=== PATIENT | male | born 1960 | race Caucasian/White ===

== ENCOUNTER 2017-10-28 20:09 | Inpatient (IN) | payer MEDICAID ==
[~2017-10-28] VITALS: Ht 167.6 cm; Wt 53.5 kg
[~2017-10-28 20:09] MED LIST: ASPIRIN325 PO; ATIVAN1 MG PO; CELEXA20 MG PO; CREON 10 CAPSUL1 CA1 PO; DILAUDID 2 MG TA2 MG PO; FLOMAX PO; NOHOMEMEDICATIONS; OXYCODONE HCL 55 MG PO; OXYCODONE HCL5 M1 PO; PEPCID20 MG PO; PRENATABS FA T1 EACH PO; PROTONIX40 M1 PO; TRINATE TABLET1 TAB PO; VITAMIN B-1100 M1 PO; XARELTO15 MG PO; XARELTO20 MG PO
[2017-10-28 20:17] VITALS: BP 111/75
[2017-10-28] MEDS ORDERED: FLUOXETINE PO (20:29)
[2017-10-28] MEDS ORDERED: TRAZODONE PO (20:29)
[2017-10-28] MEDS ORDERED: GABAPENTIN PO (20:29)
[2017-10-28] MEDS ORDERED: MELOXICAM PO (20:30)
[2017-10-28] MEDS ORDERED: ASPIRIN325 PO (20:30)
[2017-10-28] MEDS ORDERED: NALTREXONE PO (20:30)
[2017-10-28 20:40] LABS: ABSOLUTE BASOPHILS 0.2 thou/uL (0.0-0.2); ABSOLUTE EOSINOPHILS 0.3 thou/uL (0.0-0.7); ABSOLUTE LYMPHOCYTES 2.9 thou/uL (0.8-5.3); ABSOLUTE MONOCYTES 1.4 thou/uL (0.0-1.2); ABSOLUTE NEUTROPHILS 10.5 thou/uL (1.6-8.1); BASOPHILS 1.1 %; EOSINOPHILS 2.2 %; HEMATOCRIT 28.7 % (42.0-52.0); HEMOGLOBIN 9.3 gm/dL (14.0-18.0); LYMPHOCYTES 18.7 %; MCHC 32.5 g/dL (28.0-37.0); MCV 95.5 fL (80.0-100.0); MONOCYTES 9.4 %; MPV 7.7 fl. (7.2-11.1); NUCLEATED RBCS 0 /100WBC; PLATELET COUNT* 533 thou/uL (150-400); POLYS 68.6 %; RBC 3.01 mil/uL (4.50-6.00); RDW-CV 16.9 % (10.5-14.5); WBC 15.3 thou/uL (4.0-11.0)
[2017-10-28 20:49] LABS: APTT 35.5 Seconds (25.0-31.3); PROTIME 10.2 Seconds (9.20-11.50)
[2017-10-28 21:49] LABS: ANION GAP 14 mmol/L (7-16); BUN 52 mg/dL (7-18); CALCIUM 8.9 mg/dL (8.5-10.1); CHLORIDE 102 mmol/L (98-107); CO2 16 mmol/L (21-32); CREATININE 2.7 mg/dL (0.6-1.3); GLUCOSE 107 mg/dL (70-99); POTASSIUM 4.8 mmol/L (3.5-5.1); SODIUM 132 mmol/L (136-145)
[2017-10-28 22:08] LABS: ALBUMIN 2.6 g/dL (3.4-5.0); ALKALINE PHOSPHATASE 103 U/L (46-116); CK-MB MASS < 0.5 ng/mL (<0.5-3.6); NT-PRO BRAIN NAT PEPTIDE 233 pg/mL (<300); SGOT 11 U/L (15-37); SGPT 7 U/L (30-65); TOTAL BILIRUBIN 0.2 mg/dL (<0.1-1.0); TOTAL PROTEIN 8.2 g/dL (6.4-8.2); TROPONIN-I LEVEL <0.06 ng/mL (<0.06)
[2017-10-28 23:03] VITALS: BP 126/77
[2017-10-28 23:54] LABS: URINE BILIRUBIN NEGATIVE (Negative); URINE BLOOD 3+ (Negative); URINE CLARITY TURBID; URINE COLOR YELLOW; URINE GLUCOSE-RANDOM NEGATIVE (Negative); URINE KETONES NEGATIVE (Negative); URINE PROTEIN 2+ (Negative); URINE UROBILINOGEN 0.2 E.U./dl (0.2-1.0)
[2017-10-29] VITALS (7 sets, daily range): BP systolic 109–132; BP diastolic 70–87
[2017-10-29] LABS: URINE LEUKOCYTES-REFLEX 3+ (Negative); URINE NITRITE-REFLEX POSITIVE (Negative)
[2017-10-29 00:01] LABS: AMP/METHAMP Negative (Negative); BARBITURATES Negative (Negative); BENZODIAZEPINES Negative (Negative); COCAINE Negative (Negative); METHADONE Negative (Negative); OPIATES Negative (Negative); PCP Negative (Negative); THC Negative (Negative)
[2017-10-29 01:19] LABS: CASTS None Seen /LPF (None Seen); SQUAMOUS 0-3 Few /LPF (0-3)
[2017-10-29 01:20] LABS: URINE RBC >20 Many /HPF (0-2); URINE WBC-REFLEX >25 Many /HPF (0-5)
[2017-10-29 01:21] LABS: BACTERIA-REFLEX 1-9 Few /HPF (None Seen); CRYSTALS None Seen /LPF (None Seen)
--- NOTE | 2017-10-29 14:23 | EKG ---
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: SHAKIR Low : 1960 Requested By: Karthik Swartz Order Number: [id number] MD: Camacho Beltran Measurements Intervals Icard Rate: 92 P: 80 SD: 149 QRS: 49 QRSD: 115 T: 44 QT: 359 QTc: 445 Interpretive Statements Sinus rhythm Probable left atrial enlargement Incomplete left bundle branch block Left ventricular hypertrophy Anterior Q waves, possibly due to LVH Baseline wander in lead(s) I Compared to ECG 04/17/2016 15:00:18 Left bundle-branch block now present Left ventricular hypertrophy now present Q waves now present T-wave abnormality no longer present Electronically Signed On 10-29-2017 14:23:10 CDT by Camacho Beltran [email or web address] <ELECTRONICALLY SIGNED> By: Camacho Beltran MD, [facility] 10/29/17 1423 39 39 Camacho Beltran MD, [facility] /EPI
[2017-10-29 16:28] LABS: ABSOLUTE BASOPHILS 0.1 thou/uL (0.0-0.2); ABSOLUTE EOSINOPHILS 0.4 thou/uL (0.0-0.7); ABSOLUTE LYMPHOCYTES 2.3 thou/uL (0.8-5.3); ABSOLUTE MONOCYTES 1.8 thou/uL (0.0-1.2); ABSOLUTE NEUTROPHILS 8.7 thou/uL (1.6-8.1); EOSINOPHILS 3.3 %; HEMATOCRIT 24.7 % (42.0-52.0); HEMOGLOBIN 7.6 gm/dL (14.0-18.0); LYMPHOCYTES 17.3 %; MCHC 30.9 g/dL (28.0-37.0); MCV 100.2 fL (80.0-100.0); MONOCYTES 13.1 %; MPV 8.4 fl. (7.2-11.1); NUCLEATED RBCS 0 /100WBC; PLATELET COUNT* 440 thou/uL (150-400); POLYS 65.3 %; RBC 2.46 mil/uL (4.50-6.00); RDW-CV 18.4 % (10.5-14.5); WBC 13.4 thou/uL (4.0-11.0)
[2017-10-29 16:31] LABS: CALCIUM 7.9 mg/dL (8.5-10.1); CREATININE 2.3 mg/dL (0.6-1.3); POTASSIUM 4.9 mmol/L (3.5-5.1)
[2017-10-30 04:00] VITALS: BP 128/70
[2017-10-30 08:00] VITALS: BP 134/80
[2017-10-30 11:41] VITALS: BP 133/84
[2017-10-30 12:34] LABS: CALCIUM 7.9 mg/dL (8.5-10.1); POTASSIUM 3.9 mmol/L (3.5-5.1)
[2017-10-30 12:35] LABS: CREATININE 1.3 mg/dL (0.6-1.3)
[2017-10-30 13:07] LABS: % SATURATION 13 % (20-39); IRON 18 ug/dL (50-175)
[2017-10-30 13:49] LABS: ABSOLUTE BASOPHILS 0.1 thou/uL (0.0-0.2); ABSOLUTE EOSINOPHILS 0.1 thou/uL (0.0-0.7); ABSOLUTE LYMPHOCYTES 1.4 thou/uL (0.8-5.3); ABSOLUTE MONOCYTES 0.9 thou/uL (0.0-1.2); ABSOLUTE NEUTROPHILS 8.9 thou/uL (1.6-8.1); BASOPHILS 0.5 %; EOSINOPHILS 1.1 %; HEMATOCRIT 24.6 % (42.0-52.0); HEMOGLOBIN 7.9 gm/dL (14.0-18.0); LYMPHOCYTES 12.4 %; MCH 30.7 pg (26.0-34.0); MCHC 32.2 g/dL (28.0-37.0); MCV 95.5 fL (80.0-100.0); MONOCYTES 7.7 %; NUCLEATED RBCS 0 /100WBC; PLATELET COUNT* 486 thou/uL (150-400); POLYS 78.3 %; RBC 2.57 mil/uL (4.50-6.00); RDW-CV 17.2 % (10.5-14.5); WBC 11.4 thou/uL (4.0-11.0)
[2017-10-30 15:38] VITALS: BP 142/82
[2017-10-30 20:10] VITALS: BP 139/94
[2017-10-30 23:25] VITALS: BP 141/92
[2017-10-31 03:40] VITALS: BP 134/93
[2017-10-31 07:51] VITALS: BP 136/85
[2017-10-31] MEDS ORDERED: PROTONIX40 M1 PO (12:32)
[2017-10-31] MEDS ORDERED: IRON325 PO (12:35)
[2017-10-31] MEDS ORDERED: CEFDINIR300 MG PO (12:37)
[2017-10-31 12:38] VITALS: BP 136/85
== END 2017-10-31 14:36 | disposition home or self-care (01) | DRG 682 ==
LOC: M.ERS 20:09 → M.2W 22:22 → M.TBA-ER 22:22 → M.2W 23:10
PROVIDERS: Emergency Medicine Emergency Medical Services; Internal Medicine; ADMIT Internal Medicine
DX: N17.9 Acute kidney failure, unspecified (principal); G93.41 Metabolic encephalopathy; E43 Unspecified severe protein-calorie malnutrition; R65.11 Systemic inflammatory response syndrome (SIRS) of non-infectious origin with acute organ dysfunction; Z68.1 Body mass index [BMI] 19.9 or less, adult; N39.0 Urinary tract infection, site not specified; E87.1 Hypo-osmolality and hyponatremia; E51.2 Wernicke's encephalopathy; F17.210 Nicotine dependence, cigarettes, uncomplicated; F10.10 Alcohol abuse, uncomplicated; F19.10 Other psychoactive substance abuse, uncomplicated; F03.90 Unspecified dementia, unspecified severity, without behavioral disturbance, psychotic disturbance, mood disturbance, and anxiety; E86.0 Dehydration; Z79.82 Long term (current) use of aspirin; Z79.899 Other long term (current) drug therapy

== ENCOUNTER 2018-03-10 16:14 | Inpatient (IN) | payer MEDICAID ==
[~2018-03-10] VITALS: Ht 170.2 cm; Wt 55.2 kg
[2018-03-10 16:14] VITALS: BP 133/81
[~2018-03-10 16:14] MED LIST changes: +CEFDINIR300 MG PO; +FLUOXETINE PO; +GABAPENTIN PO; +IRON325 PO; +MELOXICAM PO; +NALTREXONE PO; +TRAZODONE PO
--- NOTE | 2018-03-10 16:29 | NUR ---
PT CHANGED INTO GOWN, HEAD TO TOE, NO BRUISING NOTED ANYWHERE ON BODY, NO DEFORMITIES, NO ABRASIONS OR BLEEDING. PT IS AWAKE AND CAN TAKE BUT CAN NOT ANSWER QUESTIONS ASKED.
[2018-03-10] MEDS ORDERED: BENADRYL25 MG PO (16:40)
[2018-03-10] MEDS ORDERED: OMEPRAZOLE40 MG PO (16:40)
[2018-03-10] MEDS ORDERED: PHENERGAN 25 MG25 M1 PO (16:47)
[2018-03-10 17:40] LABS: BE -2.5 mmol/L (-2 to +3); HCO3 19.4 mmol/L (22.0-26.0); PCO2 25.8 mmHg (35.0-45.0); PO2 89.8 mmHg (75.0-100.0); pH 7.493 (7.340-7.450)
[2018-03-10 17:42] LABS: ABSOLUTE BASOPHILS 0.1 thou/uL (0.0-0.2); ABSOLUTE LYMPHOCYTES 1.5 thou/uL (0.8-5.3); BASOPHILS 1.2 %; EOSINOPHILS 0.1 %; HEMATOCRIT 32.5 % (42.0-52.0); HEMOGLOBIN 10.8 gm/dL (14.0-18.0); LYMPHOCYTES 17.2 %; MCH 30.6 pg (26.0-34.0); MCHC 33.2 g/dL (28.0-37.0); MCV 92.1 fL (80.0-100.0); MONOCYTES 11.3 %; MPV 8.4 fl. (7.2-11.1); NUCLEATED RBCS 0 /100WBC; PLATELET COUNT* 471 thou/uL (150-400); POLYS 70.2 %; RBC 3.53 mil/uL (4.50-6.00); RDW-CV 14.8 % (10.5-14.5); WBC 8.6 thou/uL (4.0-11.0)
[2018-03-10 17:48] LABS: ANION GAP 13 mmol/L (7-16); BUN 54 mg/dL (7-18); CALCIUM 8.4 mg/dL (8.5-10.1); CHLORIDE 100 mmol/L (98-107); CO2 21 mmol/L (21-32); CREATININE 4.1 mg/dL (0.6-1.3); GLUCOSE 100 mg/dL (70-99); POTASSIUM 4.4 mmol/L (3.5-5.1); SODIUM 134 mmol/L (136-145)
[2018-03-10 17:55] LABS: ALBUMIN 3.1 g/dL (3.4-5.0); ALKALINE PHOSPHATASE 79 U/L (46-116); SGOT 13 U/L (15-37); SGPT 10 U/L (30-65); TOTAL BILIRUBIN 0.2 mg/dL (<0.1-1.0); TOTAL PROTEIN 8.5 g/dL (6.4-8.2); TROPONIN-I LEVEL <0.06 ng/mL (<0.06)
[2018-03-10 19:02] LABS: URINE BILIRUBIN NEGATIVE (Negative); URINE BLOOD 2+ (Negative); URINE CLARITY CLEAR; URINE COLOR YELLOW; URINE GLUCOSE-RANDOM NEGATIVE (Negative); URINE KETONES TRACE (Negative); URINE NITRITE-REFLEX NEGATIVE (Negative); URINE PROTEIN 1+ (Negative); URINE UROBILINOGEN 0.2 E.U./dl (0.2-1.0)
[2018-03-10 19:03] LABS: URINE LEUKOCYTES-REFLEX 3+ (Negative)
[2018-03-10 19:12] LABS: AMP/METHAMP Negative (Negative); BARBITURATES Negative (Negative); BENZODIAZEPINES Negative (Negative); COCAINE Negative (Negative); METHADONE Negative (Negative); OPIATES Negative (Negative); PCP Negative (Negative); THC POSITIVE (Negative)
[2018-03-10 19:12] LABS: SQUAMOUS NONE SEEN /LPF (0-3); URINE WBC-REFLEX >25 Many /HPF (0-5)
[2018-03-10 19:13] LABS: BACTERIA-REFLEX 1-9 Few /HPF (None Seen); CASTS None Seen /LPF (None Seen); CRYSTALS None Seen /LPF (None Seen); URINE RBC 3-10 Few /HPF (0-2)
[2018-03-10 20:15] VITALS: BP 137/84
[2018-03-11] VITALS: BP 124/78
--- NOTE | 2018-03-11 01:40 | NUR ---
ASSESSMENT: PT ARRIVED TO THE UNIT FROM ED AT APPROXIMATELY 2044. PT CAME FROM HOME POST FALL DOWN BASEMENT STEPS. PT IS ALERT AND ORIENT TIMES THREE. DENIES PAIN, VSS AND AFEBRILE. PT C/O WANTING TO GET OUT OF THE HOSPITAL AND WANTING A CIGARETTE. PT'S DPOA CASA CALLED THIS RN AND INFORMED THIS RN THAT PT IS NOT TO BE MADE AWARE OF THE PLAN TO FIND PLACEMENT FOR HIM AFTER BEING DC FROM HOSPITAL. PT IS PLEASANT AND COOPERATIVE... YET HE DOES NOT WANT TO BE HERE. AFTER SPEAKING TO THE COUSIN (CASA) WHICH IS THE DPOA OF THE PT HE DECIDED THAT HE WILL STAY FOR THE NIGHT, BUT HE WANTS TO LEAVE IN THE AM. PT HAS A NOTABLE CYST LOCATED ON RIGHT SUBCLAVIAN AREA, DENY PAIN AND STATES THAT IT HAS BEEN THERE FOR YEARS. PT IS UNKEMPT, NO WOUNDS NOTED. PT REFUSED AN OFFER FOR SOMETHING TO EAT, WANTED THE ROOM LIGHTS TO REMAIN ON BRIGHT. DID RECEIVE TYLENOL FOR HEAD ACHE PAIN AND A NICOTINE PATCH TO THE RIGHT SHOULDER. PT IS PLEASANT AND COOPERATIVE. SLOW PROGRESS TOWARDS DC GOALS. WILL CONTINUE TO MONITOR.
[2018-03-11 09:30] VITALS: BP 144/87
--- NOTE | 2018-03-11 13:03 | EKG ---
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: ERICA : 1960 Requested By: Maria R Betancourt Order Number: [id number] MD: Jacey Perez Measurements Intervals [place] Rate: 79 P: 83 [place]: 165 QRS: 9 QRSD: 87 T: 50 QT: 393 QTc: 451 Interpretive Statements Sinus rhythm LAE, consider biatrial enlargement ST elevation, consider early repolarization Compared to ECG 10/28/2017 20:40 Left ventricular hypertrophy no longer present Q waves no longer present Electronically Signed On 03-11-2018 13:03:36 CDT by Jacey Perez [email or web address] <ELECTRONICALLY SIGNED> By: Jacey Perez MD, [facility] 03/11/18 1303 1714 1714 Jacey Perez MD, [facility] /EPI
--- NOTE | 2018-03-11 14:59 | NUR ---
Nutrition: Pt assessed for nsg risk 2 points. Pt has h/o dementia, ETOH. Admitted with ARF, AMS, SI. Chopped diet, no eggs. Per [employer], wt has not changed significantly. 120-130# is usual for the pt. Unsure of po intake today. Pt did take Ensure supplement during last admission in October. RD will order Ensure Enlive for added nutrition. Consider Mild risk.
[2018-03-11 16:00] VITALS: BP 140/78
[2018-03-11 17:13] LABS: CALCIUM 8.3 mg/dL (8.5-10.1); CREATININE 3.7 mg/dL (0.6-1.3); POTASSIUM 4.4 mmol/L (3.5-5.1)
--- NOTE | 2018-03-11 17:35 | NUR ---
PT REMAINED ALERT AND ORIENTED THIS SHIFT. PT IS ON RA. L HAND IV WENT BAD AND NEW IV PLACED L. FOREARM 22 GAUGE WITH NS RUNNING AT 100. BLOOD CULTURE PENDING. UA ORDERED FOR CREATININE. SEVERAL LABS ORDERED. RENAL US COMPLETED TODAY. X-RAY OF LUMBAR ORDERED DUE TO BACK PAIN. PT IS PLACED ON CHOPPED MECHANINCAL DIET WITH NUTRITIONAL SUPPLEMENT. PT IS STANDY BY ASSIST. PT DPOA/COUSIN CALLED AT LEAST 3 TIMES. DPOA IS WORRIED ABOUT PT LEAVING AND WANTS PT TO GO TO FACILITY. AT THIS TIME PT IS ALERT AND ORIENTED AND WANTS TO GO HOME. PT/OT/ST ORDERED. ST ORDERED FOR COGNITIVE FUNCTION. CALL LIGHT IN REACH. BED ALARM ON. WILL CONTINUE TO MONITOR.
--- NOTE | 2018-03-11 18:28 | NUR ---
NURSING DOCUMENTATION BY JAIME Mclean RN REVIEWED.
[2018-03-11] MEDS ORDERED: TRAZODONE 150150 M1 PO (19:01)
[2018-03-11 20:00] VITALS: BP 141/90
[2018-03-12 02:10] LABS: IgA 290 mg/dL (90-386); IgG 1398 mg/dL (700-1600); IgM 241 mg/dL (20-172)
[2018-03-12 04:42] LABS: ALBUMIN 2.8 g/dL (3.4-5.0); CALCIUM 7.8 mg/dL (8.5-10.1); CREATININE 3.3 mg/dL (0.6-1.3); POTASSIUM 4.5 mmol/L (3.5-5.1); TOTAL BILIRUBIN 0.2 mg/dL (<0.1-1.0); TOTAL PROTEIN 6.8 g/dL (6.4-8.2)
--- NOTE | 2018-03-12 08:12 | NUR ---
PATIENT HAS BEEN VERY ANXIOUS DURING THE NIGHT AND YELLING OUT "I WANT TO GO HOME, I WANT TO LEAVE" AND STATES THAT "HE IS GOING TO GET OUT OF HERE ONE WAY OR ANOTHER TODAY". PATIENT HAS STATED REGULARLY THAT HE WANTS A CIGARETTE. NURSE PUT NEW NICTOTINE PATCH ON. VSS ON RA. IV IN LEFT FOREARM-NS @ 100ML/HR. FALL PRECAUTIONS IN PLACE AND HOURLY ROUNDS MADE. PATIENT INSTRUCTED TO USE CALL LIGHT WHEN NEEDING ASSISTANCE. HOURLY ROUNDS MADE. WILL CONTINUE WITH PLAN OF CARE AND NURSING TO MONITOR.
[2018-03-12 09:12] VITALS: BP 147/94
--- NOTE | 2018-03-12 14:00 | NUR ---
SPOKE WITH PT. HE SAID HE LIVES ALONE. HE DOES JUST FINE. HE COOKS,CLEANS,SHOPS,ETC. HE USES A CANE. HE SAID HIS COUSIN/CASA NEUMANN IS HIS DPOA. 'SHE TRIES TO RUN THE SHOW. SHE TRIES TO TELL ME WHAT TO DO.' HE LOOKS SOMEWHAT UNKEPT. HAIR LONG,GREASY, HAS LONG FINGRNAILS WITH DIRT UNDERNEATH. HIS GOAL IS TO GO HOME AT DISCHARGE. NURSING STATED CASA WANTS HIM PLACED IN A [facility] AT DISCHARGE SHE FEELS HE CANNOT TAKE CARE OF HIMSELF. PT.SEEMS ALERT AND ORIENTED. THEY HAVE EXPLAINED TO CASA THAT SHE CAN NOT DICTATE WHERE PT.NEEDS TO GO AT DISCHARGE HE CAN MAKE HIS OWN DECISIONS AT THIS POINT. DISCUSSED WITH AND HE IS IN AGREEMENT. CM WILL FOLLOW.
[2018-03-12 16:00] VITALS: BP 129/92
--- NOTE | 2018-03-12 17:59 | NUR ---
PER UROLOGY PATIENT TO BE KEPT NPO UNTIL AFTER CT SCAN. ATTEMPTED TO CALL CT SCAN RESULTS TO UROLOGY X2 NO RETURN CALL. PATIENT REFUSING TO REMAIN NPO FOR DINNER. DINNER TRAY ORDERED PER PATIENT REQUEST. WILL MAKE PATIENT NPO AFTER MIDNIGHT FOR UROLOGY CONSULT TOMORROW.
--- NOTE | 2018-03-12 18:19 | NUR ---
PT REMAINED ALERT AND ORIENTED THIS SHIFT. PT HAS CONSULT FOR UROLOGY AND CT OF PELVIS W/O CONTRAST ORDERED AND NEGATIVE FINDINGS. PTNPO AFTER MIDNIGHT UNTIL UROLOGY SEES PT. PT HAS XANAX ORDERED FOR ANXIETY. 24 HOUR URINE COLLECTION ORDERED AND STARTED THIS SHIFT. PT IS UP WITH STANDY BY ASSIST. CALL LIGHT IN REACH. BED ALARM ON. WILL CONTINUE TO MONITOR.
--- NOTE | 2018-03-12 18:36 | NUR ---
NURSING DOCUMENTATION BY JAIME Mclean RN REVIEWED
[2018-03-12 21:00] VITALS: BP 105/80
--- NOTE | 2018-03-13 06:28 | NUR ---
PATIENT HAS RESTED QUIETLY THROUGHOUT THE NIGHT. NO C/O PAIN. NEW NICOTINE PATCH APPLIED AT PATIENT REQUEST. VSS ON RA. PATIENT HAS REMAINED NPO DURING THE NIGHT. IV IN LEFT FOREARM-NS @ 100ML/HR. PATIENT INSTRUCTED TO USE CALL LIGHT WHEN NEEDING ASSISTANCE. FALL PRECAUTIONS IN PLACE AND HOURLY ROUNDS MADE. WILL CONTINUE WITH PLAN OF CARE AND NURSING TO MONITOR.
[2018-03-13 07:45] VITALS: BP 130/90
--- NOTE | 2018-03-13 11:35 | CON ---
[address] [address] CONSULTATION Name: JACEY FLORES Room: [address] IN .R.#: [id number] Admission: 03/10/18 Attend Phys: Rob Winter Discharge: Date of : 60 Report #: [id number] THIS REPORT FOR: //name// CC: Rosa Lobo DATE OF SERVICE: 03/11/2018 REQUESTING PHYSICIAN: Claudio Lobo DO. REASON FOR CONSULTATION: Acute kidney injury. HISTORY OF PRESENT ILLNESS: The patient is a 57-year-old man, medical history significant for extensive use of marijuana and use alcohol in the past, deconditioning, chronic use of nonsteroidals presents after apparently fell and called his ____ told her that his legs gave out. He woke up at the bottom of the stairs. It not known how long he is lying down. The patient does not remember about this incident. SOCIAL HISTORY: As mentioned earlier. FAMILY HISTORY: Noncontributory. MEDICATIONS: Prior to admission included meloxicam, omeprazole, iron sulfate, Phenergan, naltrexone, and fluoxetine. REVIEW OF SYSTEMS: The patient tells me that he wants to go home that he has no complaints. Denies chest pain, shortness of breath, nausea, vomiting, diarrhea, and constipation. PHYSICAL EXAMINATION: GENERAL: He is awake and alert. VITAL SIGNS: Blood pressure 144/87, heart rate 77, respirations 18, temperature 36.8. HEENT: Pupils are round. NECK: Supple. LUNGS: Decreased air movement. CARDIOVASCULAR: Regular rate. ABDOMEN: Soft. EXTREMITIES: No edema. LABORATORY DATA: Report serum sodium 134, potassium 4.4, chloride 100, carbon dioxide 21, BUN 54, creatinine 4.6. ASSESSMENT: A 57-year-old man with a fall, memory problem, use of marijuana, presents after a fall and it was found to be [place] [address] CONSULTATION Name: JACEY FLORES Room: [address]#: [id number] Admission: 03/10/18 Attend Phys: Rob Winter Discharge: Date of : 60 Report #: [id number] Obviously rhabdomyolysis is a concern, so we will check a CPK. Also question his p.o. intake. He could be dehydrated and on top of that, he has been using nonsteroidals. PLAN: 1. Check renal ultrasound. 2. Continue with fluids. 3. Check CPK. 4. Follow his labs. Thank you very much for asking my opinion on acute kidney injury of the patient. <ELECTRONICALLY SIGNED> By: Daniele Ugarte MD 03/13/18 1135 1218 1947Alexandgurpreet Ugarte MD /JOHN
[2018-03-13 11:50] LABS: ABSOLUTE BASOPHILS 0.1 thou/uL (0.0-0.2); ABSOLUTE EOSINOPHILS 0.2 thou/uL (0.0-0.7); ABSOLUTE MONOCYTES 1.4 thou/uL (0.0-1.2); ABSOLUTE NEUTROPHILS 5.6 thou/uL (1.6-8.1); BASOPHILS 0.9 %; EOSINOPHILS 2.1 %; HEMATOCRIT 29.4 % (42.0-52.0); HEMOGLOBIN 9.5 gm/dL (14.0-18.0); LYMPHOCYTES 21.8 %; MCH 30.5 pg (26.0-34.0); MCHC 32.3 g/dL (28.0-37.0); MCV 94.6 fL (80.0-100.0); MONOCYTES 15.1 %; MPV 9.1 fl. (7.2-11.1); NUCLEATED RBCS 0 /100WBC; POLYS 60.1 %; RBC 3.11 mil/uL (4.50-6.00); RDW-CV 15.6 % (10.5-14.5); WBC 9.2 thou/uL (4.0-11.0)
[2018-03-13 11:53] LABS: PLATELET COUNT* 367 thou/uL (150-400)
[2018-03-13 11:54] LABS: ALBUMIN 2.7 g/dL (3.4-5.0); CALCIUM 8.5 mg/dL (8.5-10.1); CREATININE 3.1 mg/dL (0.6-1.3); POTASSIUM 4.6 mmol/L (3.5-5.1); TOTAL BILIRUBIN 0.1 mg/dL (<0.1-1.0); TOTAL PROTEIN 6.5 g/dL (6.4-8.2)
[2018-03-13 12:43] LABS: PLATELET ESTIMATE ADEQUATE
[2018-03-13 12:47] LABS: ANISOCYTOSIS 1+; POIKILOCYTOSIS 1+
[2018-03-13 15:42] VITALS: BP 136/96
--- NOTE | 2018-03-13 18:37 | NUR ---
PT ALERT AND ORIENTED X 4. IVF INFUSING @ 100 MLS/HR. PT WILL HOLLER OUT WHEN NEEDS SOMETHING. VS STABLE. PT KEPT NPO UNTIL 1120. DIET ODERED AND TOLERATED WELL. PT REFUSES TO USE A BED/CHAIR ALARM. 24 HOUR URINE COMPLETED @ 1415. DR. PEREZ CONSULT FOR KIDNEY STONE IN AFTERNOON. WILL BE HANDLED ON AN OUTPT BASIS. PT HAS BEEN GIVEN ATIVAN X 2 DURING SHIFT. HOURLY ROUNDS MAINTAINED. PT AMBULATED WITH STAFF ON UNIT. NURSING WILL CONTINUE TO MONITOR.
--- NOTE | 2018-03-13 18:48 | NUR ---
NURSING DOCUMENTATION BY BRICE CHAIREZ RN REVIEWED
[2018-03-13 19:09] LABS: M-SPIKE Not Observed g/dL (Not Observed)
[2018-03-13 20:00] VITALS: BP 131/84
[2018-03-14 03:53] LABS: ABSOLUTE BASOPHILS 0.1 thou/uL (0.0-0.2); ABSOLUTE EOSINOPHILS 0.2 thou/uL (0.0-0.7); ABSOLUTE LYMPHOCYTES 2.4 thou/uL (0.8-5.3); ABSOLUTE MONOCYTES 1.2 thou/uL (0.0-1.2); ABSOLUTE NEUTROPHILS 6.4 thou/uL (1.6-8.1); BASOPHILS 1.4 %; EOSINOPHILS 2.4 %; HEMATOCRIT 28.1 % (42.0-52.0); HEMOGLOBIN 9.2 gm/dL (14.0-18.0); LYMPHOCYTES 23.4 %; MCH 30.3 pg (26.0-34.0); MCHC 32.8 g/dL (28.0-37.0); MCV 92.4 fL (80.0-100.0); MONOCYTES 11.4 %; MPV 8.3 fl. (7.2-11.1); NUCLEATED RBCS 0 /100WBC; PLATELET COUNT* 373 thou/uL (150-400); POLYS 61.4 %; RBC 3.04 mil/uL (4.50-6.00); RDW-CV 15.2 % (10.5-14.5); WBC 10.4 thou/uL (4.0-11.0)
[2018-03-14 04:15] LABS: ALBUMIN 2.5 g/dL (3.4-5.0); CALCIUM 7.5 mg/dL (8.5-10.1); CREATININE 2.8 mg/dL (0.6-1.3); POTASSIUM 4.5 mmol/L (3.5-5.1); TOTAL BILIRUBIN 0.2 mg/dL (<0.1-1.0); TOTAL PROTEIN 6.8 g/dL (6.4-8.2)
[2018-03-14 04:28] LABS: PREALBUMIN 25.8 mg/dL (18.0-35.7)
--- NOTE | 2018-03-14 08:17 | NUR ---
Alert and oriented x 4. He is up indepndently in room and halls. Vitals are stable. He denies pain. Nictine patch applied early per patient request. He has slept well.
[2018-03-14 08:45] VITALS: BP 139/84
--- NOTE | 2018-03-14 10:03 | NUR ---
RETURNED CALL FROM PT.'S COUSIN,CASA NEUMANN. SHE HAD SOME QUESTIONS ABOUT HIS MEDICARE. QUESTIONS ANSWERED. SHE SAID SHE FEELS HE IS ACTING MUCH BETTER,MOOD ZUÑIGA,SINCE HIS MEDICATION CHANGES. SHE IS HAPPY ABOUT THAT. SHE HAD NO OHTER QUESTIONS.
--- NOTE | 2018-03-14 15:26 | NUR ---
PT.TO BE DISCHARGED TODAY. SAW PT. SHE SAID IT WAS FINE FROM HER STANDPOINT FOR PT.TO DISCHARGE. PT.EXTREMELY HAPPY ABOUT GOING HOME. PT.SHOULD HAVE NO DISCHARGE NEEDS. COUSIN SAID PT.MAY BE OPEN TO HAVING AUTOMOBILE RADIATOR MECHANIC THRU HIS MEDICAID THAT COMES IN TO DO CLEANING,COOKING,ETC. NUMBER PUT ON DISCHARGE INSTRUCTIONS TO CALL TO APPLY FOR STUDIO DESIGNER.
[2018-03-14 15:36] VITALS: BP 131/84
[2018-03-14 16:19] VITALS: BP 131/84
[2018-03-14 19:13] VITALS: BP 131/84
--- NOTE | 2018-03-14 19:15 | NUR ---
PT ALERT AND ORIENTED X 4. IVF INFUSING AT 100 MLS/HR. DENIES PAIN AND NAUSEA. PT REFUSING FALL PRECAUTIONS OF CHAIR AND BED ALARM. PT RECIEVED TYLENOL FOR HEADACHE PAIN. UP AMBULATING IN HALLWAYS. PT WAS SEEN BY DR. COELHO IN AFTERNOON. PT WILL CALL OUT TO STAFF FOR ASSISTANCE OR WALK UP TO DESK. VS STABLE. IV REMOVED. PT GIVEN DISCHARGE INSTRUCTIONS. PT LEFT UNIT WITH PERSONAL BELONGINGS TO LEAVE WITH FAMILY MEMBER BY PRIVATE CAR.
[2018-03-14 19:21] VITALS: BP 131/84
[2018-03-15 19:11] LABS: URINE PROTEIN 864 mg/24 hr (30-150); URINE PROTEIN (MG/DL) 43.2 mg/dL (Not Estab.)
--- NOTE | 2018-03-28 12:59 | CON ---
[address] [address] CONSULTATION Name: JACEY FLORES Room: [address]#: [id number] Admission: 03/10/18 Attend Phys: Rob Winter Discharge: 03/14/18 Date of : 60 Report #: [id number] THIS REPORT FOR: //name// CC: Rosa Lobo DATE OF SERVICE: 03/14/2018 REQUESTING PHYSICIAN: Dr. Lobo. REASON FOR CONSULTATION: Abnormal lab tests. HISTORY OF PRESENT ILLNESS: The patient is a 57-year-old man who was admitted to the hospital after having a fall. He was found to have acute renal injury as a part of workup. He had serum protein electrophoresis. High protein and low albumin was noticed. I am consulted for evaluation for multiple myeloma. He is doing much better. He wants to go home. Does not have complaints of any musculoskeletal pains. He does use cane because of imbalance. He has a strong past history of alcohol abuse. He has not been in the hospital recently and has not had any infections. PAST MEDICAL HISTORY: Significant for alcohol abuse and alcohol related diseases such as acute pancreatitis, history of withdrawals, metabolic encephalopathy. SOCIAL HISTORY: He is . He [place] alone [place] farm. Denies current alcohol abuse. REVIEW OF SYSTEMS: See above. PHYSICAL EXAMINATION: GENERAL: Reveals chronically ill-appearing man, appearing older than stated age. VITAL SIGNS: Blood pressure 131/84, heart rate is 85, temperature 97.8, respirations 18. HEENT: Does not reveal thrush. NECK: Supple. HEART: Normal S1, S2. LUNGS: Clear. ABDOMEN: Soft. EXTREMITIES: Lower extremities, no edema. SKIN: No rash. BACK: There is no tenderness on back palpation and percussion. LABORATORY DATA: White count 10.3, hemoglobin 9.2, platelets 373. BUN 38, creatinine 2.8 on admission, BUN 54, creatinine 4.1[place] [address] CONSULTATION Name: JACEY FLORES Room: [address]#: [id number] Admission: 03/10/18 Attend Phys: Rob Winter Discharge: 03/14/18 Date of : 60 Report #: [id number] electrophoresis shows normal pattern. No monoclonal spike identified. IgG is 3098, IgA 290, IgM 241. ASSESSMENT AND PLAN: Elevated protein with low albumin. 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 He does not have monoclonal gammopathy; therefore, he does not have multiple myeloma. His x-ray does not show any lytic lesions. Anemia, not sure if he has chronic anemia. He has mild anemia now, most likely is I think of acute kidney injury. I advised him to see primary care physician for followup to make sure his anemia resolves. Thank you very much for allowing me to participate in the care of this patient. <ELECTRONICALLY SIGNED> By: Kimberly Walsh MD 03/28/18 1259 1515 1823Brina Lassiter MD /nt
--- NOTE | 2018-04-10 08:14 | CON ---
[address] [address] CONSULTATION Name: JACEY FLORES Room: [address]R.#: [id number] Admission: 03/10/18 Attend Phys: Rob Winter Discharge: 03/14/18 Date of : 60 Report #: [id number] THIS REPORT FOR: //name// CC: Rosa Lobo DATE OF SERVICE: 03/13/2018 REASON FOR CONSULTATION: Left renal stone. HISTORY OF PRESENT ILLNESS: The patient is a 57-year-old male who has previously seen Dr. Arambula for stones. He was admitted after apparently a fall. He has history of chronic use of nonsteroidals and has used extensive marijuana and alcohol in the past. He currently denies any flank pain. He was found to be in acute renal failure on presentation with a creatinine of 4.1, he is down to 3.1 today. His baseline is around 1.3 back in October. He had a renal ultrasound on 03/11/2018, which showed a large left renal pelvic calculus and they suggested minimal caliectasis bilaterally. A CT scan noncontrast was obtained yesterday, which revealed a large 15-mm nonobstructing calculus in the left renal pelvis and a 5-mm nonobstructing stone in the mid pole on the right. There was no hydronephrosis noted and no ureteral stones noted. The patient has denied any flank pain or hematuria. PAST MEDICAL HISTORY: Includes alcohol and marijuana use, kidney stones, history of pancreatitis, history of pulmonary embolism. PAST SURGICAL HISTORY: History of ureteroscopy and extracorporeal shock wave lithotripsy, history of tonsillectomy, left tendon repair. FAMILY HISTORY: Noncontributory. SOCIAL HISTORY: The patient is a current everyday smoker, 2 packs a day. He previously used heavy alcohol use and marijuana. ALLERGIES: None. MEDICATIONS: Reviewed, please see inpatient medical record. REVIEW OF SYSTEMS: Twelve-point review of systems is performed and is negative except as noted above in the HPI. PHYSICAL EXAMINATION: VITAL SIGNS: Temperature is 36.7, pulse is 84, respirations 18, blood pressure 130/90. GENERAL: He is a well-developed, well-nourished, thin [place] [address] CONSULTATION Name: JACEY FLORES Room: [address]#: [id number] Admission: 03/10/18 Attend Phys: Rob Winter Discharge: 03/14/18 Date of : 60 Report #: [id number] distress. He appears older than his stated age. HEENT: Normocephalic, atraumatic. RESPIRATIONS: Unlabored. HEART: Regular. ABDOMEN: Soft, nontender, nondistended. BACK: He has no CVA tenderness. GENITOURINARY: He has normal genitalia. EXTREMITIES: Without clubbing, cyanosis or edema. LABORATORY DATA: White count is 9.2, hemoglobin 9.5, and platelets 367. His BUN and creatinine are 36 and 3.1 respectively, down from creatinine of 4.1 on admission. His urinalysis on 03/10/2018 showed protein, ketones, blood, leukocyte esterase, but the culture is still pending. Blood cultures are no growth so far. Ultrasound and CT scan reviewed. He has a 15-mm left renal pelvis stone that is nonobstructing and a 5-mm nonobstructing stone in the right mid pole of the kidney. ASSESSMENT AND PLAN: 1. Bilateral nephrolithiasis. 2. Acute renal failure. He does not appear to have any obstruction at this time, so this is not a contributing factor to his acute kidney failure. He does have a history of nonsteroidal anti-inflammatory use chronically. Nephrology is following him. He is making good urine. At this time, I do not think he needs inpatient treatment of his stones as they are nonobstructing and asymptomatic. He certainly will need treatment of specifically the left-sided stone due to its large size, but this can be done as an outpatient with either ESWL or ureteroscopy. The patient wishes to follow up with Dr. Arambula as he has seen him before for treatment of stones. Would recommend he follow up with him in a week or 2 after discharge with a KUB to determine next course of action for the stone. He understands to report any left flank pain or and he knows the signs to look for if the stone were to obstructing him. <ELECTRONICALLY SIGNED> By: Sandra Burris MD 04/10/18 0814 1422 1846Sandra Burris MD /nt
== END 2018-03-14 16:40 | disposition home or self-care (01) | DRG 682 ==
LOC: M.ERS 16:14 → M.ORTHSURG 18:53 → M.TBA-ER 18:53 → M.ORTHSURG 20:30
PROVIDERS: Internal Medicine; Internal Medicine Nephrology; Personal Emergency Response Attendant; ADMIT Internal Medicine
DX: N17.0 Acute kidney failure with tubular necrosis (principal); G93.41 Metabolic encephalopathy; F12.90 Cannabis use, unspecified, uncomplicated; F17.210 Nicotine dependence, cigarettes, uncomplicated; N20.0 Calculus of kidney; D89.0 Polyclonal hypergammaglobulinemia; I12.9 Hypertensive chronic kidney disease with stage 1 through stage 4 chronic kidney disease, or unspecified chronic kidney disease; D64.9 Anemia, unspecified; F32.9 Major depressive disorder, single episode, unspecified; N18.3 Chronic kidney disease, stage 3 (moderate); W10.8XXA Fall (on) (from) other stairs and steps, initial encounter; S80.211A Abrasion, right knee, initial encounter; F03.90 Unspecified dementia, unspecified severity, without behavioral disturbance, psychotic disturbance, mood disturbance, and anxiety; F10.20 Alcohol dependence, uncomplicated; R31.9 Hematuria, unspecified; E86.0 Dehydration; Z86.711 Personal history of pulmonary embolism; Z79.899 Other long term (current) drug therapy; Y93.89 Activity, other specified; Y92.89 Other specified places as the place of occurrence of the external cause; Y99.8 Other external cause status

== ENCOUNTER 2019-01-27 12:31 | Emergency (ER) | payer MEDICARE ==
[~2019-01-27] VITALS: Ht 182.9 cm; Wt 63.5 kg
[~2019-01-27 12:31] MED LIST changes: +BENADRYL25 MG PO; +OMEPRAZOLE40 MG PO; +PHENERGAN 25 MG25 M1 PO; +TRAZODONE 150150 M1 PO
[2019-01-27] MEDS ORDERED: ASPIR 8181 MG PO (12:41)
[2019-01-27] MEDS ORDERED: BUTALB-APAP-CA1 EACH PO (13:53)
[2019-01-27 14:05] VITALS: BP 146/95
== END 2019-01-27 14:06 | disposition home or self-care (01) ==
LOC: M.ERS 12:31
DX: S09.90XA Unspecified injury of head, initial encounter (principal); F17.210 Nicotine dependence, cigarettes, uncomplicated; W22.8XXA Striking against or struck by other objects, initial encounter; Y93.89 Activity, other specified; Y92.098 Other place in other non-institutional residence as the place of occurrence of the external cause; Y99.8 Other external cause status

== ENCOUNTER 2019-02-03 14:06 | Inpatient (IN) | payer MEDICARE ==
[~2019-02-03] VITALS: Ht 182.9 cm; Wt 60.3 kg
--- NOTE | ~2019-02-03 | OP ---
[facility] [address] [place] [address] OPERATIVE REPORT Name: JACEY FLORES Room: [address] IN .R.#: [id number] Admission: 02/03/19 Attend Phys: Jonas Rose MD Discharge: Date of : 60 Report #: [id number] THIS REPORT FOR: //name// CC: Rosa Rose DATE OF SERVICE: 02/06/2019 PREOPERATIVE DIAGNOSES: 1. Left renal pelvis obstructing stone. 2. Urinary tract infection. 3. Duqmw-ko-qpbhtgu renal failure. POSTOPERATIVE DIAGNOSES: 1. Left renal pelvis obstructing stone. 2. Urinary tract infection. 3. Pdkqc-bn-aerjlve renal failure. PROCEDURE: Cystourethroscopy, left retrograde pyelogram and left ureteral stent placement (6-Mozambican x 28 cm). SURGEON: Sandra Burris M.D. ANESTHESIA: General. ESTIMATED BLOOD LOSS: None. COMPLICATIONS: None. SPECIMENS: Urine from left kidney for culture and sensitivity. INDICATIONS FOR PROCEDURE: The patient is a 58-year-old male who presented with acute on chronic renal failure as well as a UTI. He has a history of nephrolithiasis and a CT was obtained, which showed a large 1.5 cm left renal pelvis calculus causing caliectasis and hydronephrosis. He was also noted to have a nonobstructing right renal stone. Because of his UTI and obstruction, it was recommended he undergo cystoscopy and left ureteral stent placement. He does understand that stone treatment is not indicated at this time due to his infection and he will require secondary procedures. He does understand fully that the stent is not permanent and must be removed in a timely fashion and how important it is to keep his followup. He understands all this. Risks of procedure were discussed including but not limited to infection, bleeding, injury to the urethra, bladder, ureter, need for secondary procedures, stent pain, cardiopulmonary complications. He voiced understanding [place] [address] OPERATIVE REPORT Name: JACEY FLORES Room: [address] IN ..#: [id number] Admission: 02/03/19 Attend Phys: Jonas Rose MD Discharge: Date of : 60 Report #: [id number] DESCRIPTION OF PROCEDURE: After informed consent was obtained, the patient was taken back to the operating suite and placed supine. After induction of general anesthesia, he was placed in dorsal lithotomy position. Genitalia prepped and draped in standard fashion. Rigid cystoscopy was performed. Urethra was normal. Prostate was short and nonobstructing. He did have a somewhat high riding bladder neck. Mucosa of the bladder was inspected and there were no tumors, lesions, or trabeculations. Ureteral orifices were orthotopic in position. A wire was threaded into the left ureter up into the kidney where the stone was visible easily on x-ray. The wire had difficulty moving past the stone as it was taking up all the room in the renal pelvis, so a 5-Mozambican open-ended catheter was threaded over the wire, eventually was able to get the wire curled past the stone in the lower pole and the 5-Mozambican open-ended catheter was advanced over the wire. Urine was aspirated from here and this was cloudy, but not frankly purulent and this was sent for culture and sensitivity. Contrast was injected. This revealed a large filling defect in the renal pelvis with caliectasis especially in the upper pole. I attempted to re-manipulate the wire into the upper pole. After replacing it through the 5-Mozambican open-ended catheter and with some difficulty, this was accomplished. I advanced the 5-Mozambican open-ended catheter into the upper pole and because that appeared the most dilated, I did aspirate some urine from there as well and that was frankly purulent, and that was added to the urine for culture. Wire was then replaced in the upper pole and I was able to thread a 6-Mozambican x 28 cm double-J stent passed the stone and into the upper pole with some resistance, but this was successful. At the end, there was a good curl in the upper pole and good curl within the bladder under direct vision. There was simply no room for any stent in the renal pelvis. The bladder was then drained and the scope was removed, 5 mL of lidocaine jelly were used per urethra for local anesthesia and a 60 mg B and O suppository was used per rectum for postoperative discomfort. He was awoken, extubated, and taken to recovery in satisfactory condition. He will be admitted back to the floor. We will monitor his renal function and he will need a full course of antibiotic therapy before stone treatment can be attempted. By: [id number] Burris MD /amaury
[~2019-02-03 14:06] MED LIST changes: +ASPIR 8181 MG PO; +BUTALB-APAP-CA1 EACH PO
[2019-02-03 14:15] VITALS: BP 161/99
[2019-02-03] MEDS ORDERED: PROZAC20 MG PO (14:21)
[2019-02-03] MEDS ORDERED: NALTREXONE HCL50 MG PO (14:22)
[2019-02-03] MEDS ORDERED: MELATONIN5 M1 PO (14:23)
[2019-02-03 14:36] LABS: ABSOLUTE BASOPHILS 0.1 thou/uL (0.0-0.2); ABSOLUTE EOSINOPHILS 0.2 thou/uL (0.0-0.7); ABSOLUTE LYMPHOCYTES 1.3 thou/uL (0.8-5.3); ABSOLUTE MONOCYTES 1.1 thou/uL (0.0-1.2); ABSOLUTE NEUTROPHILS 9.5 thou/uL (1.6-8.1); BASOPHILS 1.1 %; EOSINOPHILS 1.3 %; HEMATOCRIT 31.3 % (42.0-52.0); HEMOGLOBIN 10.7 gm/dL (14.0-18.0); MCHC 34.1 g/dL (28.0-37.0); MCV 93.8 fL (80.0-100.0); MONOCYTES 8.6 %; MPV 7.8 fl. (7.2-11.1); NUCLEATED RBCS 0 /100WBC; PLATELET COUNT* 541 thou/uL (150-400); RBC 3.34 mil/uL (4.50-6.00); RDW-CV 16.1 % (10.5-14.5); WBC 12.2 thou/uL (4.0-11.0)
[2019-02-03 14:48] LABS: ANION GAP 12 mmol/L (7-16); BUN 44 mg/dL (7-18); CALCIUM 8.8 mg/dL (8.5-10.1); CHLORIDE 107 mmol/L (98-107); CO2 21 mmol/L (21-32); CREATININE 4.1 mg/dL (0.6-1.3); GLUCOSE 108 mg/dL (70-99); POTASSIUM 4.2 mmol/L (3.5-5.1); SODIUM 140 mmol/L (136-145)
[2019-02-03 14:50] LABS: APTT 30.4 Seconds (25.0-31.3); PROTIME 9.9 Seconds (9.20-11.50)
[2019-02-03 14:54] LABS: URINE BILIRUBIN NEGATIVE (Negative); URINE BLOOD 2+ (Negative); URINE CLARITY CLEAR; URINE COLOR YELLOW; URINE GLUCOSE-RANDOM NEGATIVE (Negative); URINE KETONES NEGATIVE (Negative); URINE NITRITE-REFLEX NEGATIVE (Negative); URINE PROTEIN 1+ (Negative); URINE SPECIFIC GRAVITY 1.015 (1.005-1.030); URINE UROBILINOGEN 0.2 E.U./dl (0.2-1.0)
[2019-02-03 14:56] LABS: URINE LEUKOCYTES-REFLEX 3+ (Negative)
[2019-02-03 14:57] LABS: ALBUMIN 2.9 g/dL (3.4-5.0); ALKALINE PHOSPHATASE 103 U/L (46-116); SGOT 12 U/L (15-37); SGPT 14 U/L (30-65); TOTAL BILIRUBIN 0.2 mg/dL (<0.1-1.0); TOTAL PROTEIN 7.9 g/dL (6.4-8.2); TROPONIN-I LEVEL <0.06 ng/mL (<0.06)
[2019-02-03 15:14] LABS: CASTS None Seen /LPF (None Seen); CRYSTALS None Seen /LPF (None Seen); SQUAMOUS NONE SEEN /LPF (0-3); URINE RBC >20 Many /HPF (0-2); URINE WBC-REFLEX >25 Many /HPF (0-5)
[2019-02-03 20:00] VITALS: BP 127/84
[2019-02-03 23:58] VITALS: BP 124/70
[2019-02-03 23:59] VITALS: BP 113/76
[2019-02-04] VITALS: BP 111/76
[2019-02-04 04:00] VITALS: BP 125/76
[2019-02-04 05:09] LABS: CALCIUM 8.5 mg/dL (8.5-10.1); CREATININE 4.3 mg/dL (0.6-1.3); MAGNESIUM 1.8 mg/dL (1.8-2.4); POTASSIUM 4.3 mmol/L (3.5-5.1)
--- NOTE | 2019-02-04 05:13 | NUR ---
RECEIVED REPORT FROM ED RN. PT TRANSFERRED TO 207. PT A&OX4. FORGETFUL. VSS. STRATEGIC COMMUNICATIONS SPECIALIST IN PLACE. PHYSICAL ASSESSMENT COMPLETED AND CHARTED. ORIENTED TO ROOM & CALL LIGHT. PT ON RA. PT TRACING SR ON TELE. PT UPSTANDBY TO RESTROOM. PT DENIES ANY PAIN OR SOA. VERIFIED HOME MEDS FROM DPOA. CALL LIGHT WITHIN REACH.
[2019-02-04 07:45] VITALS: BP 133/82
--- NOTE | 2019-02-04 10:36 | EKG ---
[place] [address] ELECTROCARDIOGRAM REPORT Name: JACEY FLORES Room: [address] ADM IN M.R.#: [id number] Admission: 02/03/19 Attend Phys: Jonas Rose MD Discharge: Date of : 60 Report #: [id number] THIS REPORT FOR: //name// [facility] ED Test Date: 2019-02-03 Test Time: 15:16:20 Pat Name: JACEY FLORES Department: Room: [facility] Gender: M Tube Operator: : 1960 Requested By: Bear García Order Number: [id number] MD: Onel Rob Measurements Intervals [place] Rate: 86 P: 68 [place]: 137 QRS: -20 QRSD: 86 T: 42 QT: 370 QTc: 443 Interpretive Statements Sinus rhythm Borderline left axis deviation Borderline low voltage, extremity leads Compared to ECG 03/10/2018 17:14:39 ST (T wave) deviation no longer present Electronically Signed On 02-04-2019 10:35:58 CDT by Onel Rob [email or web address] <ELECTRONICALLY SIGNED> By: Onel Rob MD, FACC 02/04/19 1035 1516 1516 Onel Rob MD, FAC /EPI
--- NOTE | 2019-02-04 11:32 | NUR ---
Nutrition: Pt admitted s/p 3 falls in one week. Seen for low BMI. Usual wt is 120-140# range. Currently 132#. Renal diet, egg allergy. H/o ETOH dementia, CKD IV, COPD. Pt has had Ensure in past - RD will order Nepro for wt maintenance and good po intake. Mild risk at this time.
[2019-02-04 12:18] VITALS: BP 135/88
--- NOTE | 2019-02-04 12:26 | NUR ---
Pt is A&O. Resides at home alone. Pt states that [place], but has plans to move to [place] shortly after he returns home. Pt states that he has had several falls and states that LTC is the best option for him. Pt also stated that his brother resides there. Pt has a supportive cousin that is assisting with the transition. Per Pt, Shelly is his caregiver, she helps Pt with med set up and transportation and anything else that he needs. Pt uses a cane for mobility. No home o2. CM to continue to follow.
--- NOTE | 2019-02-04 15:27 | NUR ---
ASSUMED CARE OF PT AROUND 0730 THIS AM. REFER TO ASSESSMENT. PT VERY ANXIOUS THIS AM WITH MULTIPLE STATEMENTS ABOUT WANTING A CIGARETTE. DISCUSSED THAT HIS NICOTINE PATCH IS FOR 24 HOURS. PT COMPLIANT WITH NON-SMOKING FACILITY AND SHOWING SIGNS OF LESS ANXIETY THROUGHOUT DAY. NEPHROLOGY CONSULTED THIS SHIFT. US RENAL OBTAINED. REFER TO RESULTS. VSS. DENIES ANY EPISODES OF DIZZINESS THIS SHIFT. STEADY GAIT NOTED THIS SHIFT. NO OTHER CONCERNS AT THIS TIME. CLWR. WCTM.
[2019-02-04 16:46] VITALS: BP 139/96
[2019-02-04 20:00] VITALS: BP 118/88
[2019-02-05] VITALS: BP 138/87
[2019-02-05 04:00] VITALS: BP 142/85
--- NOTE | 2019-02-05 04:49 | NUR ---
ASSUMED PT CARE AT 1910. PT ANXIOUS, REQUESTING SLEEPING SLEEP AID/ANXIETY MEDICATION AT START OF SHIFT. NURSING ASSESSMENT COMPLETED, MEDICATIONS ADMINISTERED. SEE EMAR FOR DOCUMENTATION. HOURLY ROUNDING COMPLETED, CALL LIGHT WITHIN REACH.
[2019-02-05 05:43] LABS: ALBUMIN 2.6 g/dL (3.4-5.0); CALCIUM 8.8 mg/dL (8.5-10.1); MAGNESIUM 1.8 mg/dL (1.8-2.4); PHOSPHORUS* 3.5 mg/dL (2.5-4.9); POTASSIUM 4.2 mmol/L (3.5-5.1)
[2019-02-05 07:08] LABS: HEPATITIS B SURFACE AG Negative (Negative)
[2019-02-05 07:08] LABS: HIV-1/HIV-2 ANTIBODY Non Reactive (Non Reactive)
[2019-02-05 08:00] VITALS: BP 147/87
--- NOTE | 2019-02-05 09:48 | CON ---
[address] [address] CONSULTATION Name: JACEY FLORES Room: [address] IN M.R.#: [id number] Admission: 02/03/19 Attend Phys: Jonas Rose MD Discharge: Date of : 60 Report #: [id number] THIS REPORT FOR: //name// CC: Rosa oRse NEPHROLOGY CONSULTATION CONSULTING PHYSICIAN: Jonas Rose MD REASON FOR CONSULTATION: Acute kidney injury. HISTORY OF PRESENT ILLNESS: The patient is a 58-year-old gentleman with a history of alcoholism, who was admitted with frequent falls and unsteady balance. His creatinine was noted to be elevated at 4.1 and up to 4.3 today prompting Nephrology consult. He denies any difficulty with urinating, denies any recent medication changes that he is aware of. No antibiotics. No nausea, vomiting, or diarrhea. He does not believe he is taking any NSAIDs. He had a creatinine of 2.8 in 02/2018. He tells me he was recently at [facility] but details are not available. He is a limited historian. He does not have an outpatient cigar head holer. He presently appears to be comfortable and denies any complaints. REVIEW OF SYSTEMS: Constitutional, psych, heme, eyes, ENT, respiratory, cardiac, GI, , and endocrine, all negative except as documented above. PAST MEDICAL HISTORY: Chronic kidney disease, chronic obstructive pulmonary disease, depression, alcoholism with subsequent dementia related. FAMILY HISTORY: Not pertinent to a 58-year-old gentleman. SOCIAL HISTORY: Positive for marijuana, tobacco, and previous alcohol use. PHYSICAL EXAMINATION: VITAL SIGNS: Blood pressure is 133/82, pulse 91, respirations 18, and temperature 36.7. GENERAL: No acute distress. EYES: Open. Ears are externally normal. NECK: Supple. CARDIOVASCULAR: Regular rate. LUNGS: No crackles. ABDOMEN: Soft. MUSCULOSKELETAL: Nontender. PSYCHIATRIC: Awake, alert. LABORATORY DATA: Sodium 140, potassium 4.3, chloride 109, bicarbonate 20, BUN 44, creatinine 4.3, glucose 91, calcium 8.5, phosphorus 1.[place] [address] CONSULTATION Name: JACEY FLORES Room: [address] IN [facility]#: [id number] Admission: 02/03/19 Attend Phys: Jonas Rose MD Discharge: Date of : 60 Report #: [id number] cell count 12.2, hemoglobin 10.7, platelets 541. ASSESSMENT: 1. Acute kidney injury. Admission creatinine 4.1, up to 4.3 on 02/04; the 02/2018 creatinine was 2.8; the 02/2018, SPEP and serum immunofixation were both negative. 2. Chronic kidney disease, unclear what stage, but suspect he has stage 4. 3. Hypoalbuminemia with an albumin of 2.9. 4. Abnormal urinalysis. 5. Nephrolithiasis; has seen Urology in the past and saw Dr. Arambula as an outpatient and describes what sounds like lithotripsy. 6. History of alcoholism and dementia. 7. Chronic obstructive pulmonary disease. PLAN: 1. Check renal ultrasound. 2. Urine culture is pending. 3. We will check with Internal Medicine to see if the Protonix can be changed to Zantac. 4. Check CK. 5. Antibiotics have been initiated. 6. Discontinue magnesium aluminum products. 7. Check bladder scan. 8. Check HIV and hepatitis B/C. 9. We will try to review records from [facility] and follow closely. No acute indications for dialysis at this time. He will need close Nephrology followup as an outpatient. Case was discussed with Dr. Rose briefly. Thank you for requesting my opinion in the care and management of this patient. <ELECTRONICALLY SIGNED> By: Faith Doyle MD 02/05/19 0948 1123 [id number] angel Doyle MD /nt
[2019-02-05 10:49] VITALS: BP 131/89
--- NOTE | 2019-02-05 13:16 | NUR ---
Plan SNF to LTC, faxed referral to [facility]. Spoke with orly Melvin when urine cultures received, probably in the next 1-2 days.
--- NOTE | 2019-02-05 15:30 | NUR ---
[facility] is able to accept Pt for skilled to LTC, as long as Pt agrees to their no smoking policy, Pt states that he is in agreement, will continue to utilize the patch.
[2019-02-05 16:01] VITALS: BP 147/92
--- NOTE | 2019-02-05 17:32 | NUR ---
ASSUMED PT CARE. REPORT RECEIVED FROM NURSE PT IS AOX4. ON RA. IV ABX, COMPLAINS THAT HE WANTS HIS NICOTINE PATCH. I AND O MONITORING IN PROCESS. BLADDER SCAN AT 1500 SHOWS 93CC RESIDUAL. URINATES 600 CC SO FAR USING URINAL. DRINKS 400 CC SO FAR OF WATER. WORKED WITH PT. NICOTINE PATCH GIVEN AT 1400. WILL CONTINUE TO MONITOR
--- NOTE | 2019-02-05 23:19 | NUR ---
INITAL ASSESMENT COMPLETED AT 1914. PT RESTING QUIELTY IN BED WATCHING TV AT THAT TIME. PT DENIED PAIN OR DISCOMFORT. CALL LIGHT IN REACH, PT DEMONSTRAQTES PROPER USE.
[2019-02-06] VITALS: BP 135/79
[2019-02-06 04:00] VITALS: BP 133/87
[2019-02-06 04:25] LABS: HEMATOCRIT 32.6 % (42.0-52.0); HEMOGLOBIN 10.3 gm/dL (14.0-18.0); MCH 30.6 pg (26.0-34.0); MCHC 31.6 g/dL (28.0-37.0); MCV 96.8 fL (80.0-100.0); MPV 8.2 fl. (7.2-11.1); RBC 3.37 mil/uL (4.50-6.00); WBC 13.4 thou/uL (4.0-11.0)
[2019-02-06 04:38] LABS: ALBUMIN 2.7 g/dL (3.4-5.0); CREATININE 3.8 mg/dL (0.6-1.3); MAGNESIUM 1.8 mg/dL (1.8-2.4); PHOSPHORUS* 3.6 mg/dL (2.5-4.9); POTASSIUM 3.9 mmol/L (3.5-5.1)
[2019-02-06 08:00] VITALS: BP 132/90
--- NOTE | 2019-02-06 08:46 | NUR ---
I have reviewed the documentation by BRADLEY MARTELL from 02/04/19 to 02/06/19 and I concur with it. HARRY COREAS
[2019-02-06 12:00] VITALS: BP 126/95
--- NOTE | 2019-02-06 13:12 | NUR ---
Spoke with , plan of urology to stent pt today, Pt should be medically stable to dc to [facility] skilled tomorrow. CM updated Syl at [facility].
--- NOTE | 2019-02-06 16:00 | NUR ---
ASSUMED PT CARE REPORT RECEIVE FROM NURSE. PT IS AOX4 FORGETFUL. ON RA. VSS. TRACING SR ON ARCHITECTURAL SUPERINTENDENT. WORK WITH PHYSICAL THERAPY. NPO FOR CYSTOCOPY AT 1600 CONSENT SIGNED. NICOTINE PATCH ON LEFT SHOULDER. PT LEFT FLOOR FOR SX AT 1505 ACCOMPANIED BY OR NURSE. WILL CONTINUE TO MONITOR
--- NOTE | 2019-02-06 17:47 | NUR ---
PT BACK IN ROOM FROM SX. PT IS STABLE. VSS. SEE CHART. NO PAIN, NO N/V.
[2019-02-06 17:52] VITALS: BP 150/92
[2019-02-06 20:30] VITALS: BP 126/82
[2019-02-07 02:24] LABS: ALBUMIN 2.8 g/dL (3.4-5.0); CALCIUM 8.7 mg/dL (8.5-10.1); CREATININE 3.8 mg/dL (0.6-1.3); POTASSIUM 4.7 mmol/L (3.5-5.1); TOTAL BILIRUBIN 0.2 mg/dL (<0.1-1.0); TOTAL PROTEIN 7.7 g/dL (6.4-8.2)
[2019-02-07 04:00] VITALS: BP 121/83
--- NOTE | 2019-02-07 05:33 | NUR ---
PATIENT WAS A TRANSFER FROM [facility] AT SHIFT CHANGE. PATIENT HAS SLEPT PART OF THE NIGHT. IV REMAINS SALINE LOCKED. PATIENT WAS GIVEN PAIN MEDICINE TWICE. PATIENT IS UP WITH ONE TO BATHROOM. PATIENT HAS SOME STRESS INCONTINENCE AT TIMES. URINE IS BLOOD TINGED STILL FROM THE URERETAL STENT THAT WAS PLACED YESTERDAY. WILL CONTINUE TO MONITOR.
[2019-02-07 07:21] VITALS: BP 136/88
[2019-02-07] MEDS ORDERED: CEFUROXIME250 MG PO (08:26)
[2019-02-07] MEDS ORDERED: PEPCID20 MG PO (08:26)
[2019-02-07] MEDS ORDERED: LEVSIN0.125 MG SUBLING (08:26)
[2019-02-07] MEDS ORDERED: HYDROCODON-ACE1 EAC7 PO (08:26)
[2019-02-07 11:26] VITALS: BP 136/88
--- NOTE | 2019-02-07 12:22 | NUR ---
Pt to dc to [facility] today; JUDY called Syl who confirmed acceptance ready today; JUDY arranged ride with [employer] for between 1 and 1:30 pm. JUDY spoke with pt and pt is in agreement with plan. JUDY called and left message for pt cousin to inform of dc plan at pt request. JUDY faxed final orders to [facility]. [facility] ph [phone]
--- NOTE | 2019-02-07 12:37 | NUR ---
ASSESSMENT COMPLETE. PT GIVEN DC INSTRUCTIONS TO FOLLOW UP WITH UROLOGY IN ONE WEEK. PT DENIES PAIN. PRESCRIPTIONS SENT WITH PATIENT TO FACILITY. PT IV TAKEN OUT WITHOUT COMPLICATIONS. REPORT GIVEN TO NURSE AT FACILITY AT 1230. ALL BELONGINGS WITH PATIENT. SEE ASSESSMENT AND VITALS FOR OTHER DETAILS.
[2019-02-07 13:07] VITALS: BP 136/88
--- NOTE | 2019-02-07 13:11 | NUR ---
PT LEFT WITH TRANSPORT AT 1307, ALL BELONGINGS SENT WITH PATIENT
--- NOTE | 2019-02-07 14:19 | NUR ---
I have reviewed the documentation by BRADLEY MARTELL from TODAY to 02/07/19 and I concur with it. HARRY COREAS
== END 2019-02-07 13:07 | DRG 659 ==
LOC: M.ERS 14:06 → M.TBA-ER 15:55 → M.2W 15:55 → M.ORTHSURG 02-06 19:35
PROVIDERS: Family Medicine; Internal Medicine; Internal Medicine Nephrology; ADMIT Internal Medicine
PROC: 0T778DZ Dilation of Left Ureter with Intraluminal Device, Via Natural or Artificial Opening Endoscopic (ICD-10-PCS; principal; 2019-02-06)
PROC: BT1F1ZZ Fluoroscopy of Left Kidney, Ureter and Bladder using Low Osmolar Contrast (ICD-10-PCS; principal; 2019-02-06)
DX: N13.6 Pyonephrosis (principal); G92 Toxic encephalopathy; R65.11 Systemic inflammatory response syndrome (SIRS) of non-infectious origin with acute organ dysfunction; S06.0X9A Concussion with loss of consciousness of unspecified duration, initial encounter; F10.27 Alcohol dependence with alcohol-induced persisting dementia; E44.0 Moderate protein-calorie malnutrition; Z68.1 Body mass index [BMI] 19.9 or less, adult; N17.9 Acute kidney failure, unspecified; N18.4 Chronic kidney disease, stage 4 (severe); F32.9 Major depressive disorder, single episode, unspecified; F03.90 Unspecified dementia, unspecified severity, without behavioral disturbance, psychotic disturbance, mood disturbance, and anxiety; F12.90 Cannabis use, unspecified, uncomplicated; J44.9 Chronic obstructive pulmonary disease, unspecified; E88.09 Other disorders of plasma-protein metabolism, not elsewhere classified; F10.20 Alcohol dependence, uncomplicated; F17.210 Nicotine dependence, cigarettes, uncomplicated; K21.9 Gastro-esophageal reflux disease without esophagitis; N28.1 Cyst of kidney, acquired; Z60.2 Problems related to living alone; W18.39XA Other fall on same level, initial encounter; Y93.89 Activity, other specified; Y92.89 Other specified places as the place of occurrence of the external cause; Y99.8 Other external cause status; R27.0 Ataxia, unspecified; Z88.6 Allergy status to analgesic agent

== ENCOUNTER → 2019-05-07 | Outpatient (CLI) | payer MEDICARE ==
[~2019-05-07] MED LIST changes: +CEFUROXIME250 MG PO; +HYDROCODON-ACE1 EAC7 PO; +LEVSIN0.125 MG SUBLING; +MELATONIN5 M1 PO; +NALTREXONE HCL50 MG PO; +PROZAC20 MG PO
== END ==
LOC: M.ULTRA 12:46
DX: N13.2 Hydronephrosis with renal and ureteral calculous obstruction (principal)

== ENCOUNTER 2019-08-12 12:40 | Inpatient (IN) | payer MEDICARE, MEDICAID ==
[~2019-08-12] VITALS: Ht 177.8 cm; Wt 58.9 kg
[2019-08-12 12:45] VITALS: BP 159/91
[2019-08-12 13:04] LABS: BE -10.5 mmol/L (-2 to +3); PCO2 28.9 mmHg (35.0-45.0); PO2 73.5 mmHg (75.0-100.0); pH 7.315 (7.340-7.450)
[2019-08-12 13:09] LABS: ABSOLUTE LYMPHOCYTES 0.5 thou/uL (0.8-5.3); ABSOLUTE NEUTROPHILS 4.9 thou/uL (1.6-8.1); BASOPHILS 0.5 %; HEMOGLOBIN 9.8 gm/dL (14.0-18.0); LYMPHOCYTES 7.1 %; MCHC 31.6 g/dL (28.0-37.0); MCV 88.4 fL (80.0-100.0); MONOCYTES 15.6 %; MPV 7.5 fl. (7.2-11.1); NUCLEATED RBCS 0 /100WBC; PLATELET COUNT* 528 thou/uL (150-400); POLYS 76.8 %; RBC 3.51 mil/uL (4.50-6.00); RDW-CV 17.3 % (10.5-14.5); WBC 6.4 thou/uL (4.0-11.0)
[2019-08-12 13:09] LABS: INFLUENZA A ANTIGEN Negative (Negative); INFLUENZA B ANTIGEN Negative (Negative)
[2019-08-12 13:25] LABS: CALCIUM 8.3 mg/dL (8.5-10.1); CREATININE 4.4 mg/dL (0.6-1.3); POTASSIUM 4.9 mmol/L (3.5-5.1)
[2019-08-12 13:30] LABS: TOTAL BILIRUBIN 0.2 mg/dL (<0.1-1.0); TOTAL PROTEIN 9.4 g/dL (6.4-8.2)
[2019-08-12] MEDS ORDERED: PAIN RELIEVER325 MG PO (14:19)
[2019-08-12] MEDS ORDERED: GENTLE LAXATIVE5 M1 PO (14:19)
[2019-08-12] MEDS ORDERED: COUGH SYRU100 MG/5 M PO (14:20)
[2019-08-12] MEDS ORDERED: ACID REDUCER20 MG PO (14:20)
[2019-08-12] MEDS ORDERED: CYMBALTA60 MG PO (14:20)
[2019-08-12] MEDS ORDERED: DIPHENHYDRAMINE25 M3 PO (14:20)
[2019-08-12] MEDS ORDERED: NORCO 5-325 TA1 EAC1 PO ×2 (14:21)
[2019-08-12 14:22] LABS: URINE BILIRUBIN NEGATIVE (Negative); URINE BLOOD 2+ (Negative); URINE CLARITY CLEAR; URINE COLOR YELLOW; URINE GLUCOSE-RANDOM NEGATIVE (Negative); URINE KETONES NEGATIVE (Negative); URINE NITRITE-REFLEX NEGATIVE (Negative); URINE PROTEIN 1+ (Negative); URINE UROBILINOGEN 0.2 E.U./dl (0.2-1.0)
[2019-08-12] MEDS ORDERED: IPRAT-ALBUT 0.5-3 ML INH (14:22)
[2019-08-12] MEDS ORDERED: ANTI-DIARRHEAL2 MG PO (14:22)
[2019-08-12] MEDS ORDERED: HYOSCYAMINE0.125 MG PO (14:22)
[2019-08-12] MEDS ORDERED: COZAAR 50 MG TA50 MG PO (14:23)
[2019-08-12] MEDS ORDERED: MELATONIN3 M1 PO (14:23)
[2019-08-12] MEDS ORDERED: MUCINEX600 MG PO (14:23)
[2019-08-12 14:24] LABS: URINE LEUKOCYTES-REFLEX 2+ (Negative)
[2019-08-12] MEDS ORDERED: PRAZOSIN 1 MG CA1 MG PO (14:24)
[2019-08-12] MEDS ORDERED: ONDANSETRON ODT4 MG PO (14:24)
[2019-08-12] MEDS ORDERED: TAMIFLU75 MG PO (14:25)
[2019-08-12] MEDS ORDERED: REMERON15 M2 PO (14:25)
[2019-08-12] MEDS ORDERED: REXULTI0.5 MG PO (14:25)
[2019-08-12] MEDS ORDERED: FAMOTIDINE20 MG PO (14:25)
[2019-08-12] MEDS ORDERED: NICOTINE TRANSD14 M1 TRANSDERM (14:27)
[2019-08-12] MEDS ORDERED: MULTIVITAMINS1 EAC6 PO (14:27)
[2019-08-12] MEDS ORDERED: TRAZODONE HCL50 MG PO (14:27)
[2019-08-12 14:30] LABS: AMP/METHAMP Negative (Negative); BARBITURATES Negative (Negative); BENZODIAZEPINES Negative (Negative); COCAINE Negative (Negative); METHADONE Negative (Negative); OPIATES POSITIVE (Negative); PCP Negative (Negative); THC Negative (Negative)
[2019-08-12 14:34] LABS: BACTERIA-REFLEX 1-9 Few /HPF (None Seen); CASTS None Seen /LPF (None Seen); CRYSTALS None Seen /LPF (None Seen); MUCUS None Seen strn/LPF (None Seen); SQUAMOUS 4-10 Moderate /LPF (0-3); URINE RBC 3-10 Few /HPF (0-2); URINE WBC-REFLEX >25 Many /HPF (0-5)
--- NOTE | 2019-08-12 14:52 | NUR ---
RADHA NOTIFIED UPON PT RETURN FROM CT. PT CONNECTED TO O2 AND MONITOR
[2019-08-12 17:15] VITALS: BP 149/98
[2019-08-12 17:23] VITALS: BP 148/76
[2019-08-12 17:56] LABS: CALCIUM 8.3 mg/dL (8.5-10.1); POTASSIUM 4.8 mmol/L (3.5-5.1)
[2019-08-12 20:00] VITALS: BP 134/90
--- NOTE | 2019-08-12 20:10 | EKG ---
[place] [address] ELECTROCARDIOGRAM REPORT Name: JACEY FLORES Room: [address] ADM IN .R.#: [id number] Admission: 08/12/19 Attend Phys: Margarita Tapia, Discharge: Date of : 60 Date of Service: 08/12/19 1332 Report #: [id number] THIS REPORT FOR: //name// [facility] ED Test Date: 2019-08-12 Test Time: 13:32:35 Pat Name: JACEY FLORES Department: Room: [facility] Gender: M Agricultural Chemicals Inspector: LUZ MARIA : 1960 Requested By: Maria R Betancourt Order Number: [id number] MD: Onel Rob Measurements Intervals [place] Rate: 102 P: 68 [place]: 147 QRS: -48 QRSD: 112 T: 44 QT: 356 QTc: 464 Interpretive Statements Sinus tachycardia Artifact in lead(s) I,II,aVR,aVL,aVF,V1,V3,V4 and baseline wander in lead(s) V3 Compared to ECG 02/03/2019 15:16:20 consider repeat electrocardiogram Electronically Signed On 08-12-2019 20:09:54 ENGINE ROOM OPERATOR by Onel Rob [email or web address] <ELECTRONICALLY SIGNED> By: Onel Rob MD, FAC 08/12/192008 133 133 Onel Rob MD, [facility] /EPI
[2019-08-13 00:17] VITALS: BP 113/73
[2019-08-13 04:52] VITALS: BP 120/75
[2019-08-13 06:44] LABS: HEMATOCRIT 28.5 % (42.0-52.0); HEMOGLOBIN 9.1 gm/dL (14.0-18.0); MCH 28.3 pg (26.0-34.0); MCHC 31.8 g/dL (28.0-37.0); MCV 88.9 fL (80.0-100.0); MPV 8.1 fl. (7.2-11.1); RBC 3.21 mil/uL (4.50-6.00); RDW-CV 16.8 % (10.5-14.5); WBC 10.6 thou/uL (4.0-11.0)
[2019-08-13 07:02] LABS: ALBUMIN 2.6 g/dL (3.4-5.0); CALCIUM 8.2 mg/dL (8.5-10.1); CREATININE 3.7 mg/dL (0.6-1.3); MAGNESIUM 1.8 mg/dL (1.8-2.4); POTASSIUM 4.1 mmol/L (3.5-5.1); TOTAL BILIRUBIN 0.2 mg/dL (<0.1-1.0); TOTAL PROTEIN 8.3 g/dL (6.4-8.2)
[2019-08-13 07:30] VITALS: BP 117/54
--- NOTE | 2019-08-13 09:40 | NUR ---
Nutrition: Pt admitted with acidosis. Seen for low BMI. Usual wt range is 120-140#, current wt 125#. CLD ordered. Chronic ETOH-related encephalopathy. Will order Ensure Clear for added kcals. Medx, labs, hx noted. Mild risk.
--- NOTE | 2019-08-13 10:13 | NUR ---
cm completed initial assessment to discuss d/c planning. pt lives in [facility]. pt states he has no family, as his parents and have . pt states he uses no equip. pt plans to [place]n [place]. cm contacted facility arabella [facility] who states pt okay to return. cm to remain avail to assist as needed.
[2019-08-13 11:40] VITALS: BP 113/71
[2019-08-13 17:09] VITALS: BP 113/80
[2019-08-14] VITALS: BP 114/73
[2019-08-14 03:57] VITALS: BP 125/69
[2019-08-14 05:33] LABS: HEMATOCRIT 28.2 % (42.0-52.0); HEMOGLOBIN 9.1 gm/dL (14.0-18.0); MCH 28.1 pg (26.0-34.0); MCHC 32.3 g/dL (28.0-37.0); MCV 87.1 fL (80.0-100.0); MPV 8.1 fl. (7.2-11.1); RBC 3.23 mil/uL (4.50-6.00); RDW-CV 16.9 % (10.5-14.5); WBC 9.6 thou/uL (4.0-11.0)
[2019-08-14 05:38] LABS: CALCIUM 7.8 mg/dL (8.5-10.1); CREATININE 3.5 mg/dL (0.6-1.3); POTASSIUM 3.8 mmol/L (3.5-5.1)
[2019-08-14 08:00] VITALS: BP 113/75
--- NOTE | 2019-08-14 08:40 | NUR ---
PT A+O X 4 THIS SHIFT. ABLE TO USE URINAL WITHOUT DIFFICULTY (INCONTINENT AND CONFUSED PRIOR SCRAP STRIPPER HAND OBSERVED BY THIS RN). SCHEDULED NORCO EFFECTIVE FOR PAIN. CALL LIGHT IN REACH. HOURLY ROUNDING FOR SAFETY.
--- NOTE | 2019-08-14 11:08 | EKG ---
[place] [address] ELECTROCARDIOGRAM REPORT Name: JACEY FLORES Room: [address] IN M.R.#: [id number] Admission: 08/12/19 Attend Phys: Margarita Tapia, Discharge: Date of : 60 Date of Service: 08/13/19 0412 Report #: [id number] THIS REPORT FOR: //name// [facility] Test Date: 2019-08-13 Test Time: 04:12:13 Pat Name: JACEY ODOMRUBY Department: Room: [address] Gender: M Mobile Application Developer: : 1960 Requested By: Margarita Tapia Order Number: [id number] MD: Onel Rob Measurements Intervals [place] Rate: 94 P: 76 IN: 136 QRS: -74 QRSD: 86 T: 46 QT: 393 QTc: 492 Interpretive Statements Sinus rhythm Multiform ventricular premature complexes Sinus pause Probable left atrial enlargement Left anterior fascicular block Borderline prolonged QT interval Compared to ECG 08/12/2019 13:32:35 Ventricular premature complex(es) now present Sinus pause or arrest now present Left anterior fascicular block now present Sinus tachycardia no longer present Electronically Signed On 08-14-2019 11:07:39 PUTTY MIXER by Onel Rob [email or web address] <ELECTRONICALLY SIGNED> By: Onel Rob MD, [facility] 08/14/19 1107 0412 Onel Rob MD, [facility] /EPI
[2019-08-14 12:30] VITALS: BP 120/75
--- NOTE | 2019-08-14 13:44 | NUR ---
Anticipate that Pt will be ready to dc back to [facility] tomorrow. Faxed updated cinical info to [facility] and updated on POC.
[2019-08-14 16:06] VITALS: BP 127/77
--- NOTE | 2019-08-14 19:30 | NUR ---
PATINET RESTING IN BED. VSS ANDPATINET IN NOAPPARNET SIGNS OF DISTRESS T THIS TIME. AOX4 BUT FORGETFUL. UP WITH ASSIST X1, OCCASSIONAL INCONTINENCE. HOURLY ROUNDING COMPLETED FOR PATIENT SAFETY.
[2019-08-15 00:08] VITALS: BP 105/73
[2019-08-15 04:39] VITALS: BP 110/74
[2019-08-15 04:43] VITALS: BP 129/81
[2019-08-15 07:45] VITALS: BP 111/71
[2019-08-15] MEDS ORDERED: CEFUROXIME500 MG PO (10:24)
[2019-08-15] MEDS ORDERED: ANTACID650 MG PO (10:26)
[2019-08-15 11:47] VITALS: BP 112/78
[2019-08-15 12:57] VITALS: BP 112/78
--- NOTE | 2019-08-16 07:39 | CON ---
[address] [address] CONSULTATION Name: JACEY FLORES Room: [address] IN M.R.#: [id number] Admission: 08/12/19 Attend Phys: Margarita Tapia MD Discharge: 08/15/19 Date of : 60 Report #: [id number] THIS REPORT FOR: //name// cc: Jalil Sanchez MD, Dennis R MD ~ THIS REPORT FOR: //name// CC: Jalil Tapia DATE OF SERVICE: 08/13/2019 NEPHROLOGY CONSULTATION REFERRING PHYSICIAN: Jonas Rose MD REASON FOR NEPHROLOGY CONSULTATION: Metabolic acidosis and acute kidney injury on chronic kidney disease stage 4 ?. HISTORY OF PRESENT ILLNESS: The patient has past medical history of alcohol-related encephalopathy and he is in a senior living and he also has past medical history of polysubstance drug abuse, COPD, depression, and other medical problems who was sent over from the senior living because he had a fever there. He was found to have lactic acidosis when he came to the [place] [facility] here. His lactate was around 4.8 and he was started on IV fluids. He was not really hypotensive. He was diagnosed with a UTI, although urine cultures are pending and his urine specimen is contaminated and he was started on IV fluids. He did have metabolic acidosis when he came in, which is actually already improving. His creatinine was 4.4 on admission and his baseline last year back in January was 3.8-4 and he does not follow with Nephrology for unclear reasons. With IV fluids, his creatinine has come down to 3.7. He knows where he is. He is oriented to self and he is oriented to time. He is just a little slow to respond and a little drowsy and he has been incontinent to urine here for the most part according to the nurse. ALLERGIES: EGGS AND ASPIRIN. REVIEW OF SYSTEMS: As mentioned in history of present illness, otherwise limited because of his mental status. HOME MEDICATIONS: At the senior living, it looks like he gets losartan, famotidine, diphenhydramine, duloxetine, Tylenol, guaifenesin, prazosin, mirtazapine, oseltamivir, multivitamin, nicotine patch, trazodone, bisacodyl, hydrocodone/acetaminophen, hyoscyamine, ipratropium/albuterol, loperamide, melatonin, ondansetron, [place] [address] CONSULTATION Name: JACEY FLORES Room: [address]#: [id number] Admission: 08/12/19 Attend Phys: Margarita Tapia MD Discharge: 08/15/19 Date of : 60 Report #: [id number] PAST MEDICAL AND SURGICAL HISTORY: Includes undescended testicle; left tendon repair; alcohol-related encephalopathy in the past; self-inflicted abdominal wound; chronic kidney disease, stage 4, does not follow with Nephrology; ? alcohol-induced dementia; depression; COPD. FAMILY HISTORY: No pertinent family history was reviewed according to the patient's chart. The patient was not able to give me that. RECREATIONAL HISTORY: Again, the patient was not able to give me details of recreational drug. SOCIAL HISTORY: He lives in a senior living. PHYSICAL EXAMINATION: VITAL SIGNS: His blood pressure is 120/75, pulse rate is 89, temperature is 38.3, respiratory rate is 20, and his pulse ox was 94% and did not have any oxygen on. GENERAL: He is awake, alert, oriented x 3, little slow to respond. HEAD AND EYES: Atraumatic, normocephalic. EARS, NOSE, AND THROAT: Normal ears and nose. Mucous membranes are mildly dry. NECK: No JVD. CHEST: Bilaterally clear to auscultation anteriorly. No crackles or wheezing. CARDIOVASCULAR: S1, S2 normal. No murmurs. ABDOMEN: Soft, nondistended, nontender. EXTREMITIES: Lower extremities, there is no lower extremity edema. NEUROLOGICAL FUNCTION: He is awake, alert, oriented x 3. He has weakness, generalized. PSYCHIATRIC: Unable to assess. LABORATORY DATA: His white count was 10.6, his hemoglobin was 9.1 and his platelet count was 437. His sodium was 145, his potassium was 4.1, his CO2 was 21 and his creatinine was 3.7, down from 4.0. Other labs are reviewed. IMAGING: Renal ultrasound, chest x-ray and other imaging studies were reviewed. ASSESSMENT: 1. Acute kidney injury on chronic kidney disease, stage 4; baseline creatinine last year in January was 3.8-4. At this time, creatinine was 4.4 on admission. Acute kidney injury was in the setting of intravascular volume depletion and low blood pressure and use of losartan. UA showed 1+ protein, 3-10 rbc's per high power field but it was a contaminated urine specimen. I doubt this was a urinary tract infection that he has been treated for that right now. CPK 114. Renal ultrasound showed no hydronephrosis, bilateral renal cysts and a 13 mm nonobstructing left-sided renal stone, which was there before as well evidently based upon radiologist reading. 2. Anion gap metabolic acidosis, lactic acidosis, which was in the setting of [address] [place] [address] CONSULTATION Name: JACEY FLORES Room: [address] IN .R.#: [id number] Admission: 08/12/19 Attend Phys: Margarita Tapia MD Discharge: 08/15/19 Date of : 60 Report #: [id number] renal insufficiency and possible infection. This is improving. 3. He is being treated for urinary tract infection currently. Cultures are pending. 4. Incontinent to urine. 5. Mildly elevated troponin, defer to primary for management. 6. History of hypertension. Blood pressure is nicely controlled. PLAN: 1. His metabolic acidosis is already improving, his sodium is 145, we will switch his IV fluids to half normal saline at 75 mL an hour. 2. Check a bladder scan, rule out urinary retention. 3. Please monitor his I's and O's if possible. 4. Try to avoid nephrotoxic agents. Try to keep his MAP around 65-70 and check morning labs. 5. The patient encouraged to follow up with Nephrology when he is discharged from here. 6. Keep losartan on hold. Thank you for this consultation. Discussed with the patient's nurse and the patient will continue to follow along with you. <ELECTRONICALLY SIGNED> By: Vicki Victoria MD 08/16/19 0739 1000 [id number] tomi Banks
== END 2019-08-15 13:45 | DRG 871 ==
LOC: M.ERS 12:40 → M.TBA-ER 14:14 → M.2W 14:14
PROVIDERS: Internal Medicine; Personal Emergency Response Attendant; ADMIT Internal Medicine
DX: A41.9 Sepsis, unspecified organism (principal); N17.0 Acute kidney failure with tubular necrosis; N39.0 Urinary tract infection, site not specified; E87.2 Acidosis; G93.49 Other encephalopathy; N18.4 Chronic kidney disease, stage 4 (severe); G31.2 Degeneration of nervous system due to alcohol; R65.20 Severe sepsis without septic shock; I12.9 Hypertensive chronic kidney disease with stage 1 through stage 4 chronic kidney disease, or unspecified chronic kidney disease; F10.97 Alcohol use, unspecified with alcohol-induced persisting dementia; F32.9 Major depressive disorder, single episode, unspecified; D64.9 Anemia, unspecified; N20.0 Calculus of kidney; J44.9 Chronic obstructive pulmonary disease, unspecified; F17.210 Nicotine dependence, cigarettes, uncomplicated; Z79.899 Other long term (current) drug therapy; Z88.6 Allergy status to analgesic agent; Z91.012 Allergy to eggs

== ENCOUNTER 2019-09-26 11:01 | Inpatient (IN) | payer MEDICARE, MEDICAID ==
[~2019-09-26] VITALS: Ht 167.6 cm; Wt 59.6 kg
[~2019-09-26 11:01] MED LIST changes: +ACID REDUCER20 MG PO; +ANTACID650 MG PO; +ANTI-DIARRHEAL2 MG PO; +CEFUROXIME500 MG PO; +COUGH SYRU100 MG/5 M PO; +COZAAR 50 MG TA50 MG PO; +CYMBALTA60 MG PO; +DIPHENHYDRAMINE25 M3 PO; +FAMOTIDINE20 MG PO; +GENTLE LAXATIVE5 M1 PO; +HYOSCYAMINE0.125 MG PO; +IPRAT-ALBUT 0.5-3 ML INH; +MELATONIN3 M1 PO; +MUCINEX600 MG PO; +MULTIVITAMINS1 EAC6 PO; +NORCO 10-325 T1 EACH PO; +NORCO 5-325 TA1 EAC1 PO; +ONDANSETRON ODT4 MG PO; +PAIN RELIEVER325 MG PO; +PRAZOSIN 1 MG CA1 MG PO; +REMERON15 M2 PO; +REXULTI0.5 MG PO; +TAMIFLU75 MG PO; +TRAZODONE HCL50 MG PO
[2019-09-26 11:10] VITALS: BP 134/83
[2019-09-26] MEDS ORDERED: INCRUSE ELLI62.5 MCG INH (11:34)
[2019-09-26 11:44] LABS: ABSOLUTE BASOPHILS 0.1 thou/uL (0.0-0.2); ABSOLUTE LYMPHOCYTES 0.8 thou/uL (0.8-5.3); ABSOLUTE MONOCYTES 1.6 thou/uL (0.0-1.2); ABSOLUTE NEUTROPHILS 12.5 thou/uL (1.6-8.1); BASOPHILS 0.9 %; HEMATOCRIT 29.6 % (42.0-52.0); HEMOGLOBIN 9.5 gm/dL (14.0-18.0); LYMPHOCYTES 5.3 %; MCH 28.2 pg (26.0-34.0); MCHC 32.1 g/dL (28.0-37.0); MCV 87.8 fL (80.0-100.0); MONOCYTES 10.8 %; MPV 7.9 fl. (7.2-11.1); NUCLEATED RBCS 0 /100WBC; PLATELET COUNT* 385 thou/uL (150-400); RBC 3.37 mil/uL (4.50-6.00); RDW-CV 18.2 % (10.5-14.5)
[2019-09-26 11:49] LABS: PROTIME 10.2 Seconds (9.20-11.50)
[2019-09-26 11:50] LABS: CALCIUM 8.3 mg/dL (8.5-10.1); POTASSIUM 4.3 mmol/L (3.5-5.1)
[2019-09-26 12:00] LABS: ALBUMIN 2.9 g/dL (3.4-5.0); TOTAL BILIRUBIN 0.3 mg/dL (<0.1-1.0); TOTAL PROTEIN 8.5 g/dL (6.4-8.2)
[2019-09-26 12:08] LABS: INFLUENZA A ANTIGEN Negative (Negative); INFLUENZA B ANTIGEN Negative (Negative)
[2019-09-26 14:17] LABS: URINE BILIRUBIN NEGATIVE (Negative); URINE BLOOD 2+ (Negative); URINE COLOR YELLOW; URINE GLUCOSE-RANDOM NEGATIVE (Negative); URINE KETONES NEGATIVE (Negative); URINE LEUKOCYTES-REFLEX 1+ (Negative); URINE NITRITE-REFLEX NEGATIVE (Negative); URINE PROTEIN 1+ (Negative); URINE SPECIFIC GRAVITY 1.015 (1.005-1.030); URINE UROBILINOGEN 0.2 E.U./dl (0.2-1.0)
[2019-09-26 14:20] VITALS: BP 137/77
[2019-09-26 14:20] LABS: URINE CLARITY HAZY
[2019-09-26] MEDS ORDERED: NICOTINE TRANSD14 M1 TRANSDERM (14:27)
[2019-09-26 14:33] LABS: SQUAMOUS 0-3 Few /LPF (0-3)
[2019-09-26 14:34] LABS: BACTERIA-REFLEX None Seen /HPF (None Seen); CASTS None Seen /LPF (None Seen); CRYSTALS None Seen /LPF (None Seen); URINE RBC 0-2 Rare /HPF (0-2)
[2019-09-26 15:23] VITALS: BP 148/89
[2019-09-26 16:00] VITALS: BP 147/84
[2019-09-26 20:00] VITALS: BP 121/77
[2019-09-27] VITALS: BP 132/81
[2019-09-27 03:40] VITALS: BP 144/91
[2019-09-27 05:51] LABS: HEMATOCRIT 27.3 % (42.0-52.0); HEMOGLOBIN 8.7 gm/dL (14.0-18.0); MCV 87.8 fL (80.0-100.0); MPV 8.3 fl. (7.2-11.1); NUCLEATED RBCS 0 /100WBC; PLATELET COUNT* 332 thou/uL (150-400); RBC 3.12 mil/uL (4.50-6.00); WBC 14.2 thou/uL (4.0-11.0)
[2019-09-27 06:10] LABS: CALCIUM 8.4 mg/dL (8.5-10.1); CREATININE 3.4 mg/dL (0.6-1.3); POTASSIUM 4.7 mmol/L (3.5-5.1)
[2019-09-27 07:17] LABS: ABSOLUTE LYMPHOCYTES 1.3 thou/uL (0.8-5.3); ABSOLUTE MONOCYTES 0.4 thou/uL (0.0-1.2); ABSOLUTE NEUTROPHILS 12.5 thou/uL (1.6-8.1); PLATELET ESTIMATE ADEQUATE
[2019-09-27 07:18] LABS: ANISOCYTOSIS Occasional; HYPOCHROMASIA 1+
[2019-09-27 09:03] VITALS: BP 139/83
[2019-09-27 12:00] VITALS: BP 131/88
[2019-09-27 16:00] VITALS: BP 134/76
[2019-09-27 20:00] VITALS: BP 143/66
[2019-09-28 04:00] VITALS: BP 141/88
[2019-09-28 05:33] LABS: ABSOLUTE LYMPHOCYTES 1.3 thou/uL (0.8-5.3); ABSOLUTE MONOCYTES 0.5 thou/uL (0.0-1.2); BASOPHILS 0.2 %; HEMATOCRIT 26.9 % (42.0-52.0); HEMOGLOBIN 8.6 gm/dL (14.0-18.0); LYMPHOCYTES 7.3 %; MCH 27.9 pg (26.0-34.0); MCHC 31.8 g/dL (28.0-37.0); MCV 87.7 fL (80.0-100.0); MPV 8.4 fl. (7.2-11.1); NUCLEATED RBCS 0 /100WBC; PLATELET COUNT* 355 thou/uL (150-400); POLYS 89.5 %; RBC 3.06 mil/uL (4.50-6.00); RDW-CV 18.3 % (10.5-14.5); WBC 17.9 thou/uL (4.0-11.0)
[2019-09-28 06:08] LABS: ALBUMIN 2.3 g/dL (3.4-5.0); CALCIUM 8.2 mg/dL (8.5-10.1); CREATININE 3.5 mg/dL (0.6-1.3); POTASSIUM 4.3 mmol/L (3.5-5.1); TOTAL BILIRUBIN 0.2 mg/dL (<0.1-1.0); TOTAL PROTEIN 7.5 g/dL (6.4-8.2)
[2019-09-28 16:00] VITALS: BP 152/80
--- NOTE | 2019-09-28 17:16 | CON ---
[address] [address] CONSULTATION Name: JACEY FLORES Room: [address] IN M.R.#: [id number] Admission: 09/26/19 Attend Phys: Zac Madrid MD Discharge: Date of : 60 Report #: [id number] THIS REPORT FOR: //name// cc: Jalil Sanchez MD, Dennis R MD ~ THIS REPORT FOR: //name// CC: Zac Sanchez DATE OF SERVICE: 09/27/2019 INFECTIOUS DISEASE CONSULTATION REASON FOR CONSULTATION: I was asked to evaluate concerning COVID-19 infection. HISTORY OF PRESENT ILLNESS: The patient is a 58-year-old [facility] with underlying history of alcohol-induced dementia and previous closed head injury. Has COPD, presents with increased cough with minimal sputum production, shortness of breath along with fever. Symptoms had been ongoing for about 3 days. Also, complained of some myalgias and arthralgias. He was transferred to [facility] for further evaluation. COVID PCR confirmed positive. He has been placed on azithromycin and hydroxychloroquine. His oxygen requirements have been up to 2 liters per nasal cannula. Now off oxygen and at 95% saturation. He was alert and cooperative, although was a poor historian. Could not give me a good detail of the time course of his symptoms, felt reasonably well today, but still reported cough. PAST MEDICAL HISTORY: Undescended testicle, left tendon repair, tonsillectomy, abdominal wound infection, depression, alcohol-induced dementia, chronic kidney disease, COPD. ALLERGIES: ASPIRIN AND EGGS. MEDICATIONS: As noted on his MAR, having been started on combination treatment for COVID. FAMILY HISTORY: No report of tuberculosis. SOCIAL HISTORY: Smoker of cigarettes, past alcohol use. REVIEW OF SYSTEMS: CONSTITUTIONAL: As noted above. No visual changes, no change in smell or taste. RESPIRATORY: As above. CARDIOVASCULAR: [place] [address] CONSULTATION Name: JACEY FLORES Room: [address] IN [facility].#: [id number] Admission: 09/26/19 Attend Phys: Zac Madrid MD Discharge: Date of : 60 Report #: [id number] GASTROINTESTINAL: No nausea, vomiting or diarrhea. GENITOURINARY: Negative. MUSCULOSKELETAL: Negative. SKIN: Negative. NEUROLOGIC: Negative. PSYCHIATRIC: As above. ALLERGIES: Negative. HEMATOLOGIC: Negative. PHYSICAL EXAMINATION: VITAL SIGNS: He is afebrile and hemodynamically stable. GENERAL: He is alert and cooperative. SKIN: Without rash or decubitus. No palpable adenopathy. EYES: Without scleral icterus. MOUTH: Without mucositis. NECK: Supple. LUNGS: Clear to auscultation. HEART: Regular, without murmur, gallop or rub. ABDOMEN: Soft, nontender, no hepatosplenomegaly or mass. EXTREMITIES: Without clubbing, cyanosis or edema. NEUROLOGIC: Cranial nerves were intact. Strength in his upper and lower extremities was symmetric as well as sensation to touch upper and lower extremities was symmetric and within normal limits. BACK: Nontender along the spine or CVA regions. GENITORECTAL: Not performed. LABORATORY STUDIES: Reviewed. MICROBIOLOGY: Reviewed. Chest x-ray reviewed. Electrocardiogram reviewed with QTC of 450. IMPRESSION: COVID-19 with evidence of pneumonia. Respiratory status remained stable over the last 24 hours. No other secondary issues have developed. He does have underlying COPD and chronic kidney disease. His dementia, remained stable. RECOMMENDATION: We will continue his current antibiotic program and watch closely in isolation unit. <ELECTRONICALLY SIGNED> By: Oscar Auguste MD 09/28/19 1716 1753 [id number] Auguste MD /nt
[2019-09-29] VITALS: BP 142/102
[2019-09-29 04:00] VITALS: BP 131/88
[2019-09-29 05:52] LABS: ABSOLUTE LYMPHOCYTES 0.9 thou/uL (0.8-5.3); BASOPHILS 0.3 %
[2019-09-29 05:53] LABS: ABSOLUTE MONOCYTES 0.7 thou/uL (0.0-1.2); ABSOLUTE NEUTROPHILS 11.5 thou/uL (1.6-8.1); HEMATOCRIT 30.1 % (42.0-52.0); HEMOGLOBIN 9.8 gm/dL (14.0-18.0); LYMPHOCYTES 6.9 %; MCH 28.1 pg (26.0-34.0); MCHC 32.4 g/dL (28.0-37.0); MCV 86.8 fL (80.0-100.0); MONOCYTES 5.2 %; MPV 8.8 fl. (7.2-11.1); NUCLEATED RBCS 0 /100WBC; PLATELET COUNT* 378 thou/uL (150-400); POLYS 87.6 %; RBC 3.47 mil/uL (4.50-6.00); RDW-CV 18.1 % (10.5-14.5); WBC 13.1 thou/uL (4.0-11.0)
[2019-09-29 06:04] LABS: ALBUMIN 2.6 g/dL (3.4-5.0); CALCIUM 8.8 mg/dL (8.5-10.1); CREATININE 3.5 mg/dL (0.6-1.3); POTASSIUM 3.8 mmol/L (3.5-5.1); TOTAL BILIRUBIN 0.3 mg/dL (<0.1-1.0); TOTAL PROTEIN 8.7 g/dL (6.4-8.2)
--- NOTE | 2019-09-29 12:49 | CON ---
[address] [address] CONSULTATION Name: JACEY FLORES Room: [address] IN M.R.#: [id number] Admission: 09/26/19 Attend Phys: Zac Madrid MD Discharge: Date of : 60 Report #: [id number] THIS REPORT FOR: //name// cc: Jalil Sanchez MD, Dennis R MD ~ THIS REPORT FOR: //name// CC: Zac Sanchez MD INDICATION: Chest pain and tachycardia. HISTORY OF PRESENT ILLNESS: The patient is a 58-year-old gentleman admitted to the hospital with COVID-19 infection. He has no prior cardiac history. The patient lives in assisted care. His primary complaints were fatigue. While in hospital, he was noted to have episodes of tachycardia. Telemetry monitoring suggests supraventricular tachycardia, likely atrial flutter. In this setting, the patient is complaining of midsternal chest discomfort that is persistent. He reports mild diaphoresis, no nausea, no vomiting. There is no radiation of the discomfort. A 12-lead EKG shows atrial tachycardia without acute ST or T-wave abnormalities. QT intervals appear normal. PAST MEDICAL HISTORY: 1. Depression. 2. Alcohol-induced dementia. 3. COPD. 4. Stage 4 renal insufficiency. 5. History of tonsillectomy and adenoidectomy. 6. Left tendon repair. 7. Undescended testicle. 8. Self-inflicted abdominal wound. 9. History of tachycardia. FAMILY HISTORY: Noncontributory. SOCIAL HISTORY: The patient is a daily smoker. He has a history of alcohol abuse in the past. PHYSICAL EXAMINATION: VITAL SIGNS: Blood pressure 141/88, pulse currently 121. Telemetry shows sinus tachycardia with premature atrial contractions. GENERAL: This is a thin gentleman who does not appear to be in any distress. Mood and affect appropriate. HEENT: Head is normocephalic, atraumatic. NECK: Shows no jugular venous distention. There are no carotid bruits. CHEST: Reveals clear lung jones [place] [address] CONSULTATION Name: JACEY FLORES Room: [address]#: [id number] Admission: 09/26/19 Attend Phys: Zac Madrid MD Discharge: Date of : 60 Report #: [id number] CARDIAC: Reveals an irregular rhythm without gallop or murmur. ABDOMEN: Reveals a thin abdomen, soft, nontender. EXTREMITIES: Show no edema. SKIN: Dry. Initial 12-lead EKG shows sinus rhythm with no acute ST or T-wave abnormalities. QT intervals are normal. Subsequent telemetry shows episodes of atrial tachycardia. I do not appreciate significant QT prolongation. LABORATORY DATA: Reviewed. Electrolytes are within normal limits. BUN is 50, creatinine 3.5, serum glucose 94. Initial troponin on admission less than 0.06. White blood cell count 17.9, hemoglobin 8.6, MCV 87.7, platelet count 355,000. IMPRESSION AND RECOMMENDATIONS: 1. Chest discomfort, etiology not entirely clear. We will get serial enzymes. Review of the EKG does not suggest any type of ST elevation myocardial infarction. Could be due to some tachyarrhythmia. 2. Atrial tachycardia, possibly atrial flutter. We will start amiodarone drip and bolus to improve rhythm control. Echocardiogram ordered and pending. No further treatment at this time. We will obtain EKG in a.m. to evaluate QT interval. 3. COVID-19 infection, treating supportively and with Plaquenil and azithromycin. The patient appears stable from this standpoint. <ELECTRONICALLY SIGNED> By: Onel Rob MD, FACC 09/29/19 1249 1214 [id number] Rob MD, FACC /nt
[2019-09-29 13:25] VITALS: BP 142/93
--- NOTE | 2019-09-29 15:25 | 2DMMODE ---
[place] [address] 2 D/M-MODE ECHOCARDIOGRAM Name: JACEY FLORES Room: [address] IN .R.#: [id number] Admission: 09/26/19 Attend Phys: Zac Madrid, Discharge: Date of : 60 Date of Service: 09/29/19 1524 Report #: [id number] THIS REPORT FOR: cc: Jalil Sanchez MD, Dennis R MD Blick,Jacey Bennett MD [facility] ~ APPROVED REPORT Study performed: 09/29/2019 13:45:19 EXAM: Comprehensive 2D, Doppler, and color-flow Echocardiogram Patient Location: In-Patient Room #: 112 Status: routine BSA: 1.67 HR: 97 bpm BP: 131/88 mmHg Rhythm: NSR Other Information Technically limited study due to inability to position patient. off axis imaging. Indications Arrhythmia Sepsis 2D Dimensions IVSd: 11.92 (7-11mm) LVOT Diam: 22.38 (18-24mm) LVDd: 51.29 mm PWd: 12.01 (7-11mm) Ascending Ao: 33.27 (22-36mm) LVDs: 39.56 (25-40mm) Aortic Root: 43.47 mm Pulmonary Valve PV Peak Prabhakar.: 0.65 m/s PV Peak Gr.: 1.68 mmHg Left Ventricle The left ventricle is normal size. There is global hypokinesis of the left ventricle. Mild concentric left ventricular hypertrophy. Left ventricular systolic function is moderately decreased. LVEF is 30-35%. This study is not technically sufficient to allow evaluation of [place] [address] 2 D/M-MODE ECHOCARDIOGRAM Name: JACEY FLORES Cassie Room: [address] IN ..#: [id number] Admission: 09/26/19 Attend Phys: Zac Madrid, Discharge: Date of : 60 Date of Service: 09/29/19 1524 Report #: [id number] Right Ventricle The right ventricle is normal size. The right ventricular systolic function is normal. Atria The left atrium size is normal. The right atrium size is normal. Aortic Valve The aortic valve is normal in structure. No aortic regurgitation is present. There is no aortic valvular stenosis. Mitral Valve The mitral valve is normal in structure. There is no mitral valve regurgitation noted. No evidence of mitral valve stenosis. Tricuspid Valve The tricuspid valve is normal in structure. Unable to assess PA pressure. Trace tricuspid regurgitation. Pulmonic Valve The pulmonary valve is normal in structure. There is no pulmonic valvular regurgitation. Great Vessels The aortic root is normal in size. IVC is normal in size and collapses >50% with inspiration. Pericardium There is no pericardial effusion. <Conclusion> LVEF is 30-35%. <ELECTRONICALLY SIGNED> By: Jacey Perez MD, [facility] 09/29/19 1524 1524 1524 Jacey Perez MD, FACC /INF
[2019-09-29 16:54] VITALS: BP 142/88
[2019-09-29 22:10] VITALS: BP 143/91
[2019-09-30 00:09] VITALS: BP 142/89
[2019-09-30 04:39] VITALS: BP 133/87
[2019-09-30 05:48] LABS: ABSOLUTE LYMPHOCYTES 0.8 thou/uL (0.8-5.3); ABSOLUTE MONOCYTES 0.7 thou/uL (0.0-1.2); ABSOLUTE NEUTROPHILS 5.3 thou/uL (1.6-8.1); BASOPHILS 0.5 %; HEMATOCRIT 29.9 % (42.0-52.0); HEMOGLOBIN 9.7 gm/dL (14.0-18.0); LYMPHOCYTES 11.8 %; MCH 28.7 pg (26.0-34.0); MCHC 32.5 g/dL (28.0-37.0); MCV 88.4 fL (80.0-100.0); MONOCYTES 10.7 %; MPV 8.3 fl. (7.2-11.1); NUCLEATED RBCS 0 /100WBC; PLATELET COUNT* 334 thou/uL (150-400); RBC 3.39 mil/uL (4.50-6.00); RDW-CV 18.1 % (10.5-14.5); WBC 6.8 thou/uL (4.0-11.0)
[2019-09-30 06:09] LABS: CALCIUM 8.6 mg/dL (8.5-10.1); CREATININE 3.6 mg/dL (0.6-1.3); POTASSIUM 4.1 mmol/L (3.5-5.1)
[2019-09-30 06:46] LABS: PREALBUMIN 21.3 mg/dL (18.0-35.7)
[2019-09-30 09:00] VITALS: BP 128/87
[2019-09-30 16:00] VITALS: BP 136/64
[2019-09-30 20:50] VITALS: BP 138/87
[2019-09-30 23:45] VITALS: BP 128/80
[2019-10-01 05:10] VITALS: BP 119/79
[2019-10-01 07:30] VITALS: BP 120/86; BP 151/44
[2019-10-01 10:41] LABS: CALCIUM 8.4 mg/dL (8.5-10.1); CREATININE 3.8 mg/dL (0.6-1.3); POTASSIUM 3.8 mmol/L (3.5-5.1)
[2019-10-01 12:00] VITALS: BP 126/79
[2019-10-01 16:34] VITALS: BP 129/90
[2019-10-01 20:00] VITALS: BP 122/68
[2019-10-02] VITALS: BP 118/64
[2019-10-02 04:00] VITALS: BP 107/77
[2019-10-02 08:29] VITALS: BP 127/79
[2019-10-02 12:00] VITALS: BP 118/76
[2019-10-02 15:55] LABS: ABSOLUTE BASOPHILS 0.1 thou/uL (0.0-0.2); ABSOLUTE LYMPHOCYTES 0.8 thou/uL (0.8-5.3); ABSOLUTE MONOCYTES 1.2 thou/uL (0.0-1.2); ABSOLUTE NEUTROPHILS 6.1 thou/uL (1.6-8.1); BASOPHILS 0.7 %; EOSINOPHILS 0.3 %; HEMATOCRIT 27.4 % (42.0-52.0); LYMPHOCYTES 9.9 %; MCH 28.4 pg (26.0-34.0); MCHC 32.9 g/dL (28.0-37.0); MCV 86.4 fL (80.0-100.0); MONOCYTES 14.2 %; MPV 8.8 fl. (7.2-11.1); NUCLEATED RBCS 0 /100WBC; PLATELET COUNT* 373 thou/uL (150-400); POLYS 74.9 %; RBC 3.17 mil/uL (4.50-6.00); RDW-CV 17.6 % (10.5-14.5); WBC 8.2 thou/uL (4.0-11.0)
[2019-10-02 16:00] VITALS: BP 125/78
[2019-10-02 16:18] LABS: ALBUMIN 2.2 g/dL (3.4-5.0); CALCIUM 8.2 mg/dL (8.5-10.1); CREATININE 4.1 mg/dL (0.6-1.3); POTASSIUM 4.1 mmol/L (3.5-5.1); TOTAL BILIRUBIN 0.2 mg/dL (<0.1-1.0); TOTAL PROTEIN 7.5 g/dL (6.4-8.2)
[2019-10-02 20:00] VITALS: BP 119/75
[2019-10-03] VITALS (7 sets, daily range): BP systolic 100–146; BP diastolic 65–93
[2019-10-03 05:02] LABS: HEMATOCRIT 26.6 % (42.0-52.0); HEMOGLOBIN 8.6 gm/dL (14.0-18.0); MCHC 32.4 g/dL (28.0-37.0); MCV 86.2 fL (80.0-100.0); MPV 8.8 fl. (7.2-11.1); NUCLEATED RBCS 0 /100WBC; PLATELET COUNT* 377 thou/uL (150-400); RBC 3.09 mil/uL (4.50-6.00); RDW-CV 17.8 % (10.5-14.5); WBC 7.9 thou/uL (4.0-11.0)
[2019-10-03 05:24] LABS: ALBUMIN 2.1 g/dL (3.4-5.0); CALCIUM 8.4 mg/dL (8.5-10.1); CREATININE 4.5 mg/dL (0.6-1.3); POTASSIUM 4.1 mmol/L (3.5-5.1); TOTAL BILIRUBIN 0.1 mg/dL (<0.1-1.0); TOTAL PROTEIN 7.6 g/dL (6.4-8.2)
[2019-10-03 07:15] LABS: ABSOLUTE BASOPHILS 0.1 thou/uL (0.0-0.2); ABSOLUTE LYMPHOCYTES 2.4 thou/uL (0.8-5.3); ABSOLUTE MONOCYTES 1.6 thou/uL (0.0-1.2); ABSOLUTE NEUTROPHILS 3.8 thou/uL (1.6-8.1); ATYPICAL LYMPHS 4 %; ATYPICAL MONONUCLEARS 1 %
[2019-10-03 07:16] LABS: PLATELET ESTIMATE ADEQUATE
[2019-10-03 07:18] LABS: HYPOCHROMASIA 2+; MICROCYTES 1+
--- NOTE | 2019-10-03 12:20 | EKG ---
[place] [address] ELECTROCARDIOGRAM REPORT Name: JACEY FLORES Room: [address] ADM IN M.R.#: [id number] Admission: 09/26/19 Attend Phys: Zac Madrid, Discharge: Date of : 60 Date of Service: 09/26/19 1104 Report #: [id number] THIS REPORT FOR: //name// [facility] ED Test Date: 2019-09-26 Test Time: 11:04:11 Pat Name: JACEY FLORES Department: Room: [facility] Gender: M Relationship Executive: : 1960 Requested By: Bear García Order Number: [id number] MD: Camacho Beltran Measurements Intervals [place] Rate: 110 P: 71 WI: 141 QRS: -58 QRSD: 79 T: 49 QT: 332 QTc: 450 Interpretive Statements Sinus tachycardia Left anterior fascicular block Compared to ECG 08/13/2019 04:12:13 Sinus rate has increased Ventricular premature complex(es) no longer present Sinus pause or arrest no longer present Electronically Signed On 09-26-2019 14:22:11 CDT by Camacho Beltran [email or web address] <ELECTRONICALLY SIGNED> By: Camacho Beltran MD, [facility] 09/26/19 1422 1104 1104 Camacho Beltran MD, [facility] /EPI
--- NOTE | 2019-10-03 12:23 | EKG ---
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 : 1960 Requested By: Zac Madrid Order Number: [id number] Reading MD: Misha Perez Measurements Intervals [place] Rate: 116 P: 70 VA: 128 QRS: -37 QRSD: 91 T: -15 QT: 332 QTc: 462 Interpretive Statements Sinus tachycardia artifact noted Atrial premature complexes Consider right atrial enlargement Left axis deviation Compared to ECG 09/26/2019 11:04:11 Atrial premature complex(es) now present Electronically Signed On 09-29-2019 15:30:30 CDT by Misha Perez [email or web address] <ELECTRONICALLY SIGNED> By: Misha Perez MD, [facility] 09/29/19 1530 1115 1115 Misha Perez MD, [facility] /EPI
[2019-10-04 03:16] VITALS: BP 118/83
[2019-10-04 09:00] VITALS: BP 119/86
[2019-10-04 09:09] LABS: ABSOLUTE BASOPHILS 0.1 thou/uL (0.0-0.2); ABSOLUTE LYMPHOCYTES 1.6 thou/uL (0.8-5.3); ABSOLUTE MONOCYTES 1.5 thou/uL (0.0-1.2); ABSOLUTE NEUTROPHILS 12.9 thou/uL (1.6-8.1); BASOPHILS 0.7 %; HEMATOCRIT 28.6 % (42.0-52.0); LYMPHOCYTES 9.8 %; MCH 27.5 pg (26.0-34.0); MCHC 31.5 g/dL (28.0-37.0); MCV 87.4 fL (80.0-100.0); MONOCYTES 9.2 %; MPV 8.9 fl. (7.2-11.1); NUCLEATED RBCS 0 /100WBC; PLATELET COUNT* 444 thou/uL (150-400); POLYS 80.3 %; RBC 3.27 mil/uL (4.50-6.00); RDW-CV 17.9 % (10.5-14.5); WBC 16.1 thou/uL (4.0-11.0)
[2019-10-04 09:47] LABS: ALBUMIN 2.3 g/dL (3.4-5.0); CALCIUM 8.7 mg/dL (8.5-10.1); CREATININE 4.4 mg/dL (0.6-1.3); POTASSIUM 4.8 mmol/L (3.5-5.1); TOTAL BILIRUBIN 0.2 mg/dL (<0.1-1.0); TOTAL PROTEIN 8.2 g/dL (6.4-8.2)
[2019-10-04 12:35] VITALS: BP 126/81
[2019-10-04 13:16] LABS: URINE BILIRUBIN NEGATIVE (Negative); URINE BLOOD 2+ (Negative); URINE COLOR YELLOW; URINE GLUCOSE-RANDOM NEGATIVE (Negative); URINE KETONES NEGATIVE (Negative); URINE LEUKOCYTES-REFLEX 1+ (Negative); URINE NITRITE-REFLEX NEGATIVE (Negative); URINE PROTEIN 2+ (Negative); URINE UROBILINOGEN 0.2 E.U./dl (0.2-1.0)
[2019-10-04 13:17] LABS: URINE CLARITY HAZY
[2019-10-04 13:33] LABS: BACTERIA-REFLEX 1-9 Few /HPF (None Seen); CASTS None Seen /LPF (None Seen); CRYSTALS None Seen /LPF (None Seen); MUCUS 0-3 Light strn/LPF (None Seen); SQUAMOUS 0-3 Few /LPF (0-3)
[2019-10-04 15:49] VITALS: BP 104/68
[2019-10-04 19:45] VITALS: BP 118/75
[2019-10-04 23:56] VITALS: BP 120/66
[2019-10-05 04:00] VITALS: BP 147/82
[2019-10-05 06:20] LABS: ALBUMIN 2.3 g/dL (3.4-5.0); CALCIUM 8.7 mg/dL (8.5-10.1); CREATININE 4.1 mg/dL (0.6-1.3); POTASSIUM 4.4 mmol/L (3.5-5.1); TOTAL BILIRUBIN 0.2 mg/dL (<0.1-1.0); TOTAL PROTEIN 8.3 g/dL (6.4-8.2)
[2019-10-05 06:42] LABS: HEMATOCRIT 31.3 % (42.0-52.0); HEMOGLOBIN 10.3 gm/dL (14.0-18.0); MCH 28.7 pg (26.0-34.0); MCHC 32.8 g/dL (28.0-37.0); MCV 87.7 fL (80.0-100.0); NUCLEATED RBCS 0 /100WBC; PLATELET COUNT* 466 thou/uL (150-400); RBC 3.57 mil/uL (4.50-6.00); RDW-CV 18.3 % (10.5-14.5); WBC 19.3 thou/uL (4.0-11.0)
[2019-10-05 07:22] LABS: ABSOLUTE LYMPHOCYTES 3.5 thou/uL (0.8-5.3); ABSOLUTE MONOCYTES 1.4 thou/uL (0.0-1.2); ABSOLUTE NEUTROPHILS 14.5 thou/uL (1.6-8.1); ANISOCYTOSIS 1+; ATYPICAL LYMPHS 2 %; METAMYELOCYTES 4 %; PLATELET ESTIMATE INCREASED
[2019-10-05 08:00] VITALS: BP 137/80
[2019-10-05 12:00] VITALS: BP 125/76; BP 129/65
[2019-10-05 21:32] VITALS: BP 135/96
[2019-10-05 23:54] VITALS: BP 131/96
[2019-10-06 04:00] VITALS: BP 128/83
[2019-10-06 06:03] LABS: ABSOLUTE BASOPHILS 0.1 thou/uL (0.0-0.2); ABSOLUTE LYMPHOCYTES 1.9 thou/uL (0.8-5.3); ABSOLUTE MONOCYTES 1.6 thou/uL (0.0-1.2); ABSOLUTE NEUTROPHILS 9.4 thou/uL (1.6-8.1); BASOPHILS 0.7 %; EOSINOPHILS 0.3 %; HEMATOCRIT 28.4 % (42.0-52.0); HEMOGLOBIN 9.1 gm/dL (14.0-18.0); LYMPHOCYTES 14.7 %; MCH 27.8 pg (26.0-34.0); MCHC 32.2 g/dL (28.0-37.0); MCV 86.1 fL (80.0-100.0); MONOCYTES 12.3 %; MPV 8.1 fl. (7.2-11.1); NUCLEATED RBCS 0 /100WBC; RBC 3.29 mil/uL (4.50-6.00); RDW-CV 17.9 % (10.5-14.5)
[2019-10-06 06:09] LABS: PLATELET COUNT* 554 thou/uL (150-400)
[2019-10-06 06:24] LABS: ALBUMIN 2.2 g/dL (3.4-5.0); CALCIUM 9.2 mg/dL (8.5-10.1); CREATININE 3.8 mg/dL (0.6-1.3); POTASSIUM 4.7 mmol/L (3.5-5.1); TOTAL BILIRUBIN 0.3 mg/dL (<0.1-1.0); TOTAL PROTEIN 8.6 g/dL (6.4-8.2)
[2019-10-06 08:50] VITALS: BP 129/87
[2019-10-06 12:00] VITALS: BP 116/83
[2019-10-06 16:00] VITALS: BP 126/87
[2019-10-06 20:00] VITALS: BP 123/83
[2019-10-07] VITALS: BP 122/81; BP 138/85
[2019-10-07 04:00] VITALS: BP 120/76
[2019-10-07 08:35] VITALS: BP 128/94
[2019-10-07 10:15] LABS: ABSOLUTE BASOPHILS 0.2 thou/uL (0.0-0.2); ABSOLUTE EOSINOPHILS 0.1 thou/uL (0.0-0.7); ABSOLUTE LYMPHOCYTES 1.3 thou/uL (0.8-5.3); ABSOLUTE MONOCYTES 1.3 thou/uL (0.0-1.2); ABSOLUTE NEUTROPHILS 9.5 thou/uL (1.6-8.1); BASOPHILS 1.3 %; EOSINOPHILS 0.5 %; HEMOGLOBIN 8.8 gm/dL (14.0-18.0); LYMPHOCYTES 10.3 %; MCH 28.1 pg (26.0-34.0); MCHC 32.6 g/dL (28.0-37.0); MCV 86.3 fL (80.0-100.0); MONOCYTES 10.6 %; MPV 8.3 fl. (7.2-11.1); NUCLEATED RBCS 0 /100WBC; PLATELET COUNT* 580 thou/uL (150-400); POLYS 77.3 %; RBC 3.13 mil/uL (4.50-6.00); RDW-CV 17.5 % (10.5-14.5); WBC 12.2 thou/uL (4.0-11.0)
[2019-10-07 10:26] LABS: ALBUMIN 2.3 g/dL (3.4-5.0); CALCIUM 8.8 mg/dL (8.5-10.1); POTASSIUM 4.6 mmol/L (3.5-5.1); TOTAL BILIRUBIN 0.2 mg/dL (<0.1-1.0); TOTAL PROTEIN 8.5 g/dL (6.4-8.2)
[2019-10-07 11:39] VITALS: BP 119/83
[2019-10-07 16:45] VITALS: BP 135/84
[2019-10-07 20:00] VITALS: BP 136/91
[2019-10-08 00:03] VITALS: BP 120/83
[2019-10-08 04:34] VITALS: BP 120/78
[2019-10-08 06:32] LABS: HEMATOCRIT 24.7 % (42.0-52.0); HEMOGLOBIN 7.9 gm/dL (14.0-18.0); MCH 27.8 pg (26.0-34.0); MCHC 32.2 g/dL (28.0-37.0); MCV 86.3 fL (80.0-100.0); MPV 8.5 fl. (7.2-11.1); RBC 2.86 mil/uL (4.50-6.00); RDW-CV 17.4 % (10.5-14.5); WBC 11.4 thou/uL (4.0-11.0)
[2019-10-08 06:47] LABS: ALBUMIN 2.3 g/dL (3.4-5.0); CALCIUM 8.7 mg/dL (8.5-10.1); CREATININE 3.9 mg/dL (0.6-1.3); POTASSIUM 4.9 mmol/L (3.5-5.1)
[2019-10-08 08:46] VITALS: BP 136/88
[2019-10-08 16:30] VITALS: BP 136/93
[2019-10-08 20:10] VITALS: BP 140/86
[2019-10-09] VITALS: BP 127/77
[2019-10-09 04:00] VITALS: BP 141/97
[2019-10-09 08:00] VITALS: BP 102/77
[2019-10-09 12:00] VITALS: BP 130/82
[2019-10-09 16:00] VITALS: BP 140/89
[2019-10-09 20:00] VITALS: BP 132/87
[2019-10-10] VITALS: BP 157/86
[2019-10-10 04:00] VITALS: BP 130/77
[2019-10-10 09:35] VITALS: BP 126/64
[2019-10-10 16:29] VITALS: BP 114/69
[2019-10-10 20:00] VITALS: BP 141/89
[2019-10-11 04:00] VITALS: BP 139/88
[2019-10-11 05:33] LABS: HEMATOCRIT 25.5 % (42.0-52.0); HEMOGLOBIN 8.2 gm/dL (14.0-18.0); MCH 28.3 pg (26.0-34.0); MCHC 32.2 g/dL (28.0-37.0); MCV 87.8 fL (80.0-100.0); MPV 8.6 fl. (7.2-11.1); RBC 2.91 mil/uL (4.50-6.00); RDW-CV 17.7 % (10.5-14.5)
[2019-10-11 05:36] LABS: ALBUMIN 2.2 g/dL (3.4-5.0); CALCIUM 8.1 mg/dL (8.5-10.1); CREATININE 4.1 mg/dL (0.6-1.3); POTASSIUM 5.1 mmol/L (3.5-5.1)
[2019-10-11 08:00] VITALS: BP 146/90
[2019-10-11 12:00] VITALS: BP 128/84
[2019-10-11 20:15] VITALS: BP 152/93
[2019-10-12 04:00] VITALS: BP 131/87
[2019-10-12 07:02] LABS: HEMATOCRIT 27.7 % (42.0-52.0); HEMOGLOBIN 8.7 gm/dL (14.0-18.0); MCH 27.8 pg (26.0-34.0); MCHC 31.4 g/dL (28.0-37.0); MCV 88.5 fL (80.0-100.0); MPV 8.5 fl. (7.2-11.1); NUCLEATED RBCS 0 /100WBC; RBC 3.13 mil/uL (4.50-6.00); RDW-CV 17.6 % (10.5-14.5); WBC 12.8 thou/uL (4.0-11.0)
[2019-10-12 07:06] LABS: PLATELET COUNT* 670 thou/uL (150-400)
[2019-10-12 07:17] LABS: ALBUMIN 2.6 g/dL (3.4-5.0); CALCIUM 9.5 mg/dL (8.5-10.1); POTASSIUM 5.9 mmol/L (3.5-5.1); TOTAL BILIRUBIN 0.2 mg/dL (<0.1-1.0); TOTAL PROTEIN 8.2 g/dL (6.4-8.2)
[2019-10-12 08:14] LABS: ABSOLUTE LYMPHOCYTES 1.8 thou/uL (0.8-5.3); ABSOLUTE MONOCYTES 1.7 thou/uL (0.0-1.2); ABSOLUTE NEUTROPHILS 9.3 thou/uL (1.6-8.1); PLATELET ESTIMATE INCREASED
[2019-10-12 08:15] LABS: ANISOCYTOSIS 1+
[2019-10-12 08:52] VITALS: BP 141/87
[2019-10-12 11:29] VITALS: BP 123/75
[2019-10-12 16:10] VITALS: BP 137/88
[2019-10-12 19:55] VITALS: BP 174/98
[2019-10-13] VITALS: BP 132/92
[2019-10-13 04:00] VITALS: BP 118/76
[2019-10-13 06:21] LABS: HEMATOCRIT 24.8 % (42.0-52.0); HEMOGLOBIN 8.2 gm/dL (14.0-18.0); MCH 28.6 pg (26.0-34.0); MCV 86.7 fL (80.0-100.0); MPV 8.1 fl. (7.2-11.1); RBC 2.86 mil/uL (4.50-6.00); RDW-CV 17.8 % (10.5-14.5); WBC 10.7 thou/uL (4.0-11.0)
[2019-10-13 06:49] LABS: ALBUMIN 2.3 g/dL (3.4-5.0); CALCIUM 8.7 mg/dL (8.5-10.1); CREATININE 4.2 mg/dL (0.6-1.3)
[2019-10-13 06:50] LABS: POTASSIUM 4.4 mmol/L (3.5-5.1)
[2019-10-13 07:51] VITALS: BP 131/89
[2019-10-13 12:06] VITALS: BP 126/81
[2019-10-13 16:35] VITALS: BP 126/85
[2019-10-13 19:45] VITALS: BP 161/95
[2019-10-14] VITALS: BP 158/96
[2019-10-14 04:00] VITALS: BP 129/79
[2019-10-14 05:35] LABS: HEMATOCRIT 26.5 % (42.0-52.0); HEMOGLOBIN 8.8 gm/dL (14.0-18.0); MCH 28.9 pg (26.0-34.0); MCHC 33.4 g/dL (28.0-37.0); MCV 86.7 fL (80.0-100.0); RBC 3.06 mil/uL (4.50-6.00); RDW-CV 17.7 % (10.5-14.5)
[2019-10-14 05:49] LABS: ALBUMIN 2.5 g/dL (3.4-5.0); CALCIUM 8.7 mg/dL (8.5-10.1); CREATININE 4.2 mg/dL (0.6-1.3); POTASSIUM 3.7 mmol/L (3.5-5.1); TOTAL BILIRUBIN 0.2 mg/dL (<0.1-1.0); TOTAL PROTEIN 8.3 g/dL (6.4-8.2)
[2019-10-14 08:10] VITALS: BP 127/86
[2019-10-14 12:00] VITALS: BP 148/70
[2019-10-14] MEDS ORDERED: PROTONIX40 M2 PO (12:32)
[2019-10-14] MEDS ORDERED: MIRALAX119 GM PO (12:34)
[2019-10-14] MEDS ORDERED: ROXICODONE5 MG PO (12:36)
[2019-10-14] MEDS ORDERED: PACERONE200 MG PO (12:40)
[2019-10-14] MEDS ORDERED: CARVEDILOL12.5 MG PO (12:41)
[2019-10-14] MEDS ORDERED: HEPARIN SO5000 UNIT5 SUBQ (12:44)
--- NOTE | 2019-10-16 12:46 | CON ---
[address] [address] CONSULTATION Name: JACEY FLORES Room: [address] IN M.R.#: [id number] Admission: 09/26/19 Attend Phys: Zac Madrid MD Discharge: 10/14/19 Date of : 60 Report #: [id number] THIS REPORT FOR: //name// cc: Jalil Sanchez MD, Dennis R MD ~ THIS REPORT FOR: //name// CC: Zac Sanchez DATE OF SERVICE: 10/13/2019 REASON FOR CONSULTATION: Elevated creatinine. HISTORY OF PRESENT ILLNESS: This is a 58-year-old gentleman with a history of chronic kidney disease, who was admitted with fever, cough, falls, and abnormal chest x-ray. He is currently being investigated for possible coronavirus and his test result is pending. 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 He has been seen in the hospital before, but has had no followup in our office as an outpatient. He currently denies any nausea or vomiting. He has no poor appetite. His breathing is comfortable. He is hoping to go home soon. REVIEW OF SYSTEMS: Constitutional, Psych, Heme, Eyes, ENT, Respiratory, Cardiac, GI, , Endocrine, all negative except as documented above. PAST MEDICAL HISTORY: Chronic kidney disease, depression, and COPD. SOCIAL HISTORY: Positive for tobacco. FAMILY HISTORY: Not pertinent in this 58-year-old gentleman. CURRENT MEDICATIONS: Reviewed. PHYSICAL EXAMINATION: VITAL SIGNS: Blood pressure 136/81, pulse 83, respirations 16, temperature 36.8. GENERAL: No acute distress. EYES: Open. EARS: Externally normal. NECK: Supple. CARDIOVASCULAR: Regular rate and rhythm. No pericardial friction rub. LUNGS: No crackles. ABDOMEN: Soft. MUSCULOSKELETAL: Nontender. PSYCHIATRIC: [place] [address] CONSULTATION Name: JACEY FLORES Room: [address]#: [id number] Admission: 09/26/19 Attend Phys: Zac Madrid MD Discharge: 10/14/19 Date of : 60 Report #: [id number] LABORATORY DATA: White cell count 10.7, hemoglobin 8.2, platelets 633. Sodium 142, potassium 4.4, chloride 107, bicarbonate 24, BUN 41, creatinine 4.2, glucose 96, albumin 2.3. ASSESSMENT AND PLAN: 1. Chronic kidney disease stage 4, creatinine is at 4.2, which appears to be close to his baseline in 02/2018. SPEP and immunofixation were negative. He previously had hepatitis B surface antigen, hepatitis C antibody and HIV, which were negative. 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 His chronic kidney disease is likely secondary to regular NSAID use in the past. His 09/2019 ejection fraction is 30-35%. 2. History of nephrolithiasis, has seen Dr. Arambula and has seen Dr. Burris in the hospital, had a left ureteral stent placed for obstructing stone in 01/2019. 3. History of alcoholism. 4. History of dementia. 5. History of complex right renal cyst noted on a previous ultrasound. 6. Chronic obstructive pulmonary disease. 7. Ejection fraction of 30-35%. 8. Anemia. 9. Thrombocytosis, deferred to Internal Medicine. 10. Hypoalbuminemia. Albumin 2.3. 11. COVID-19 positive. Creatinine is fairly stable. He is in isolation. We will check lab again in the a.m. Check CK and monitor urine output. No acute indications for dialysis at this time. I emphasized with him the importance of close followup as an outpatient. <ELECTRONICALLY SIGNED> By: Faith Doyle MD 10/16/19 1246 1601 1923Akanika Doyle MD /nt
== END 2019-10-14 14:45 | DRG 871 ==
LOC: M.ERS 11:01 → M.TBA-ER 12:36 → M.ORTHSURG 12:36
PROVIDERS: Family Medicine; Internal Medicine; Internal Medicine Cardiovascular Disease; Specialist; ADMIT Internal Medicine
DX: A41.9 Sepsis, unspecified organism (principal); U07.1 COVID-19; J12.89 Other viral pneumonia; J96.21 Acute and chronic respiratory failure with hypoxia; E43 Unspecified severe protein-calorie malnutrition; J44.0 Chronic obstructive pulmonary disease with (acute) lower respiratory infection; N18.4 Chronic kidney disease, stage 4 (severe); I47.1 Supraventricular tachycardia; F10.27 Alcohol dependence with alcohol-induced persisting dementia; G93.40 Encephalopathy, unspecified; F11.20 Opioid dependence, uncomplicated; R65.20 Severe sepsis without septic shock; D47.3 Essential (hemorrhagic) thrombocythemia; E88.09 Other disorders of plasma-protein metabolism, not elsewhere classified; F17.210 Nicotine dependence, cigarettes, uncomplicated; D64.9 Anemia, unspecified; F32.9 Major depressive disorder, single episode, unspecified; Q53.9 Undescended testicle, unspecified; Z79.899 Other long term (current) drug therapy; Z88.8 Allergy status to other drugs, medicaments and biological substances; Z91.012 Allergy to eggs; Z68.21 Body mass index [BMI] 21.0-21.9, adult